=== PATIENT | male | born 1960 | race Caucasian/White ===

== ENCOUNTER 2019-06-26 17:37 | Emergency (ER) | payer MEDICAID, SELFPAY ==
[2019-06-26 17:50] VITALS: BP 135/82; PULSE 92; RESP 20; TEMP 36.4; O2SAT 97; BMI 30.7
--- NOTE | 2019-06-26 17:59 | ED_ITS ---
Entered by Keira Butler, acting as scribe for Genesis Hicks MD HPI - General Adult General: Chief complaint: General Medical Stated complaint: cant sleep Time Seen by Provider: 06/26/19 17:59 Source: patient Mode of arrival: ambulatory Limitations: no limitations History of Present Illness: HPI narrative: 58 yo Male presents to ED with complaint of insomnia. Pt states that he needs a refill of his Seroquel. Pt states that he takes 400mg at night. Pt normally see Alpa Lizzie. Pt states that he ran out on . Pt states that he has been trying to get his doctor's office to send a refill to the pharmacy but hasn't been able to get anywhere with it. complaint: Insomnia Onset (ago): day(s) (4) Relieving factors: medication Exacerbating factors: none Associated symptoms: Reports other (Insomnia); Deny chest pain, dyspnea, headache(s), nausea, rash or vomiting Treatments prior to arrival: none Review of Systems Const: Denies: fever or chills Eyes: Denies: change in vision ENMT: Denies: throat pain or mouth pain Card: Denies: chest pain Resp: Denies: shortness of breath GI: Denies: abdominal pain, nausea, vomiting or diarrhea Musc: Denies: back pain or joint pain Skin/Breast: Denies: rash Neuro: Denies: headache or behavioral changes Psych: Denies: depression Endo: Denies: excessive urination Cordell/Lymph: Denies: easy bruising All/Imm: Denies: hives PFSH ED PFSH: Statuses (acute, chronic, etc) shown below reflect problem list status as previously entered and may not be historically accurate Social History Smoking and tobacco status: never smoked Physical Exam Const: COMMON NORMALS: no apparent distress and healthy appearing HENMT: COMMON NORMALS: normocephalic and external nose normal HEAD & SCALP: normocephalic NOSE: external nose normal and no nasal discharge (nasal dischage) Eye: COMMON NORMALS: PERRL PUPIL: Yes PERRL Neck/C-Spine: COMMON NORMALS: full ROM and no lymphadenopathy Chest: COMMONS NORMALS: inspection of chest normal Resp: COMMON NORMALS: normal respiratory effort and clear to auscultation bilaterally AUSCULTATION: clear to auscultation bilaterally Cardio: COMMON NORMALS: regular rate and regular rhythm RATE: regular rate RHYTHM: regular rhythm GI: COMMON NORMALS: soft to palpation PALPATION: Yes soft Extremity: COMMON NORMALS: normal to inspection, full ROM and normal capillary refill Psych: COMMON NORMALS: mental status grossly normal and cooperative Skin: COMMON NORMALS: no rashes or lesions noted GENERAL SKIN EXAM: no rashes or lesions noted Course Vital Signs: Vital signs: Vital Signs Temperature 97.5 F L 06/26/19 17:50 Pulse Rate 92 06/26/19 17:50 Respiratory Rate 20 H 06/26/19 17:50 Blood Pressure 135/82 06/26/19 17:50 Pulse Oximetry 97 06/26/19 17:50 MDM - General Adult MDM Narrative: Medical decision making narrative: Patient presents here with difficulty sleeping. Will place patient on Seroquel and refill his Seroquel prescription. Patient is stable for discharge and is to follow-up with primary care doctor in 3 to 5 days and return if worsening. Discharge Plan Discharge Patient Disposition: Home, Self-Care Clinical Impression: Insomnia Qualifiers: Insomnia type: other insomnia Qualified Code(s): G47.09 - Other insomnia Condition: Stable Prescriptions: New Seroquel 400 mg tablet 400 mg PO DAILY Qty: 30 RF: 0 Discharge Orders: Discharge Order (Routine); Ordered 06/26/19 Ordered By: Genesis Hicks Referrals: Alpa Samuel FNP [Family Provider] - Discharge Diet: Advance as tolerated Discharge Activity: Resume usual activity Patient Instructions: Insomnia (ED) Coding Level of Care Code ED Transitional Care Liaison for Chg Fwd Exam Problem Focused The documentation recorded by the Luke dhillon Carmen, accurately reflects the service I personally performed and the decisions made by , Genesis Hicks MD
[2019-06-26 18:17] VITALS: BP 145/72; PULSE 78; RESP 18; O2SAT 98
== END 2019-06-26 18:18 | disposition home or self-care (01) ==
LOC: ER 18:18
PROVIDERS: Emergency Provider Emergency Medicine; Family Provider Nurse Practitioner
DX: G47.09 Other insomnia (principal)
CPT/HCPCS: 99281

== ENCOUNTER 2019-11-09 08:11 | Emergency (ER) | payer MEDICAID, SELFPAY ==
[2019-11-09 08:14] VITALS: BP 115/80; PULSE 88; RESP 16; TEMP 36.6; O2SAT 92; BMI 34.8
--- NOTE | 2019-11-09 08:15 | W.ED.GENADLT ---
HPI - General Adult General: Chief complaint: Recheck/Abnormal Lab/Rx Stated complaint: OUT OF MEDS Time Seen by Provider: 11/09/19 08:15 Source: patient Mode of arrival: ambulatory Limitations: no limitations History of Present Illness: HPI narrative: Patient is a client of Alpa Samuel, nurse practitioner. Ms. Samuel has been out of the office due to illness. Patient has been unable to get a refill on his Seroquel that he uses at bedtime. Patient reports being without his medication for 3 days, denies suicidal or homicidal thoughts. Patient appears well. Review of Systems General: Reports: 10 or more systems reviewed and unremarkable except in HPI and below Psych: Reports: anxiety and other (Difficulty sleeping) [facility] PFSH: Medical History (Updated 11/09/19 @ 08:30 by SHIRA Enriquez) Asthma Depression Hypertension PTSD (post-traumatic stress disorder) Social History Smoking and tobacco status: never smoked Alcohol intake: former History of recent travel: No Physical Exam Const: COMMON NORMALS: no acute distress and patient oriented x3 GENERAL APPEARANCE: cooperative HENMT: COMMON NORMALS: normocephalic and Normal external nose present HEAD & SCALP: normal to inspection and normocephalic NOSE: Normal external nose present MOUTH: Normal oral and palatal mucosa present THROAT: posterior oropharynx normal Eye: GENERAL EYE: appearance normal, both eyes and all related structures Neck/C-Spine: COMMON NORMALS: full ROM Chest: COMMONS NORMALS: normal inspection of the chest Resp: COMMON NORMALS: normal respiratory effort EFFORT & INSPECTION: Yes able to speak in complete sentences Cardio: COMMON NORMALS: regular rate and regular rhythm RATE: regular rate RHYTHM: regular rhythm GI: COMMON NORMALS: non-tender Back/Pelvis: COMMON NORMALS: thoracic and lumbar spine normal to inspection Extremity: COMMON NORMALS: normal to inspection Neuro: COMMON NORMALS: patient oriented x3 and moves all extremities Psych: COMMON NORMALS: mental status grossly normal (Flat affect) and cooperative Skin: COMMON NORMALS: no rashes or lesions noted GENERAL SKIN EXAM: no rashes or lesions noted Course Vital Signs: Vital signs: Vital Signs Temperature 97.9 F 11/09/19 08:14 Pulse Rate 88 11/09/19 08:14 Respiratory Rate 16 11/09/19 08:14 Blood Pressure 115/80 11/09/19 08:14 Pulse Oximetry 92 11/09/19 08:14 MDM - General Adult MDM Narrative: Medical decision making narrative: Patient comes in for refill on Seroquel. Exam patient appears well. Respirations are even lungs are clear to auscultation. Reviewed exam with patient with recommendations for refill of medications and follow-up with primary care. Patient reports understanding agreed to plan. Discharge Plan Discharge Patient Disposition: Home, Self-Care Clinical Impression: PTSD (post-traumatic stress disorder), Encounter for medication refill Condition: Stable Prescriptions: Continued albuterol sulfate [ProAir HFA] 90 mcg/actuation HFA aerosol inhaler 2 puff INHALATION Q6H PRN (Reason: shortness of breath or wheezing) 30 Days Qty: 18 RF: 2 duloxetine 60 mg capsule,delayed release(DR/EC) 60 mg PO DAILY Qty: 30 RF: 2 losartan 100 mg tablet 100 mg PO DAILY Qty: 30 RF: 2 Seroquel 400 mg tablet 400 mg PO DAILY Qty: 30 RF: 2 Discharge Orders: Discharge Order (Routine); Ordered 11/09/19 Ordered By: Juan Pablo Mahoney Referrals: Alpa Samuel FNP [Primary Care Provider] - Discharge Diet: Usual diet Discharge Activity: Increase activity as tolerated Activity Restrictions/Additional Instructions: Continue routine medications. Follow-up with primary care as appointment becomes available. Return to the ER for new concerns. Coding Level of Care Code ED Hoop Punch And Coiler Operator for Keyon Fwd Exam Comprehensive
== END 2019-11-09 08:45 | disposition home or self-care (01) ==
PROVIDERS: Emergency Provider Nurse Practitioner Family; Family Provider Nurse Practitioner; PCP Nurse Practitioner
DX: Z76.0 Encounter for issue of repeat prescription (principal); F43.10 Post-traumatic stress disorder, unspecified; I10 Essential (primary) hypertension; J45.909 Unspecified asthma, uncomplicated
CPT/HCPCS: 12345; 99281

== ENCOUNTER 2020-01-09 07:29 | Emergency (ER) | payer MEDICAID, SELFPAY ==
[2020-01-09 07:36] VITALS: BMI 32.8
[2020-01-09 07:39] VITALS: BP 154/129; PULSE 96; RESP 18; TEMP 37.2; O2SAT 96
--- NOTE | 2020-01-09 07:42 | W.ED.GENADLT ---
HPI - General Adult General: Chief complaint: General Medical Stated complaint: BP ISSUE/OUT OF ASTHMA MEDS Time Seen by Provider: 01/09/20 07:35 Source: patient Mode of arrival: ambulatory Limitations: no limitations History of Present Illness: HPI narrative: out of medications for 2 weeks Review of Systems General: Reports: 10 or more systems reviewed and unremarkable except in HPI and below PFSH ED PFSH: Medical History Asthma Depression Hypertension PTSD (post-traumatic stress disorder) Social History Smoking and tobacco status: never smoked Alcohol intake: former History of recent travel: No Physical Exam Const: COMMON NORMALS: no acute distress, patient oriented x3, no limitations and alert GENERAL APPEARANCE: cooperative and comfortable ORIENTATION/CONSCIOUSNESS: Yes awake, Yes oriented to person, Yes oriented to place and Yes oriented to time HENMT: COMMON NORMALS: normocephalic, atraumatic, external ears normal, EAC's normal, TM's normal bilaterally and Normal external nose present HEAD & SCALP: normal to inspection, normocephalic and atraumatic FACE & SINUS: normal facial exam, sinuses nontender and face symmetric NOSE: Normal external nose present, Normal nares present and No nasal discharge present EXTERNAL EAR: Yes external ears normal EXTERNAL AUDITORY CANAL: EAC's normal TYMPANIC MEMBRANE: TM's normal bilaterally MOUTH: Normal oral and palatal mucosa present, lip normal and tongue normal THROAT: posterior oropharynx normal, tonsils normal and uvula midline Eye: COMMON NORMALS: Equal, round and reactive pupils present, EOMs intact bilaterally and conjunctivae normal GENERAL EYE: appearance normal, both eyes and all related structures and normal light reflex EYELID: eyelids normal CONJUNCTIVA: Yes conjunctivae normal PUPIL: Yes Equal, round and reactive pupils present EOM: Yes EOM abnormal DIRECT OPHTHALMOSCOPY: Yes normal light reflex Neck/C-Spine: COMMON NORMALS: full ROM, no lymphadenopathy, supple, no meningeal signs, no JVD and Thyroid normal GENERAL: Yes normal visual inspection THYROID: Thyroid normal CERVICAL SPINE: Yes cervical ROM normal and Yes normal cervical lordosis Lymph: LYMPHATIC: no lymphadenopathy noted Chest: COMMONS NORMALS: normal inspection of the chest and normal palpation of entire chest wall Resp: COMMON NORMALS: normal respiratory effort, No retractions and clear to auscultation bilaterally AUSCULTATION: clear to auscultation bilaterally Cardio: COMMON NORMALS: no JVD, regular rate, regular rhythm, S1 normal heart sound present, S2 normal heart sound present, No gallops present (Cardio), No clicks present (Cardio), No murmurs present (Cardio), No rub (Cardio) and Peripheral pulses 2+ throughout RATE: regular rate RHYTHM: regular rhythm HEART SOUNDS: S1 normal heart sound present and S2 normal heart sound present PERIPHERAL PULSES: Peripheral pulses 2+ throughout GI: COMMON NORMALS: Normal to inspection, nondistended, normoactive bowel sounds present, Soft to palpation, non-tender and no masses PALPATION: Yes Soft to palpation : COMMON NORMALS: Yes no CVA tenderness BLADDER/KIDNEY EXAM: Yes no CVA tenderness Back/Pelvis: COMMON NORMALS: no CVA tenderness, thoracic and lumbar spine normal to inspection, no thoracic nor lumbar tenderness and thoraco-lumbar ROM normal Extremity: COMMON NORMALS: normal to inspection, full ROM, capillary refill normal, no joint enlargement, no clubbing, cyanosis or edema, no calf tenderness and no pedal edema GENERAL: Yes normal exam except as noted Neuro: COMMON NORMALS: patient oriented x3, moves all extremities, no focal motor deficits, no sensory deficits noted and gait normal SENSORIUM/ORIENTATION: Yes alert, Yes oriented to person, Yes oriented to place and Yes oriented to time MENINGEAL SIGNS: Yes no meningeal signs Psych: COMMON NORMALS: mental status grossly normal, Normal thought process present, cooperative, normal affect, speech normal and activity/motor behavior normal SPEECH: Yes normal speech THOUGHT PROCESS: Normal thought process present Skin: COMMON NORMALS: no rashes or lesions noted, no wounds and turgor normal GENERAL SKIN EXAM: no rashes or lesions noted and turgor normal Course ED course: Pt out of medications x 2 weeks Reevaluation(s): Reevaluation #1: Pt ran out of his medications 2 weeks ago when his PCP retired. He hasn't been able to be seen as of yet. Will do a 30 day refill. Time: 08:10 Vital Signs: Vital signs: Vital Signs Temperature 98.9 F 01/09/20 07:39 Pulse Rate 96 01/09/20 07:39 Respiratory Rate 18 01/09/20 07:39 Blood Pressure 154/129 01/09/20 07:39 Pulse Oximetry 96 01/09/20 07:39 Discharge Plan Discharge Prescriptions: No Action albuterol sulfate [ProAir HFA] 90 mcg/actuation HFA aerosol inhaler 2 puff INHALATION Q6H PRN (Reason: shortness of breath or wheezing) 30 Days Qty: 18 RF: 2 duloxetine 60 mg capsule,delayed release(DR/EC) 60 mg PO DAILY 30 Days Qty: 30 RF: 1 losartan 100 mg tablet 100 mg PO DAILY 30 Days Qty: 30 RF: 1 Advair HFA 230-21 mcg/actuation Hfa Aerosol Inhaler 2 puff INHALATION Q12H RF: 0 Seroquel 400 mg tablet 400 mg PO DAILY Qty: 30 RF: 2 Coding Level of Care Code ED Injection Mold Tooling Technician for Keyon Johnson
[2020-01-09 07:54] VITALS: BP 170/116; RESP 16; O2SAT 98
[2020-01-09 08:19] VITALS: BP 170/110; PULSE 87; RESP 18; O2SAT 98
== END 2020-01-09 08:21 | disposition home or self-care (01) ==
PROVIDERS: Emergency Provider Nurse Practitioner Family
DX: Z76.0 Encounter for issue of repeat prescription (principal); I10 Essential (primary) hypertension
CPT/HCPCS: 12345; 99281

== ENCOUNTER → 2020-02-20 08:22 | Outpatient (BNVA) | payer MEDICAID, SELFPAY | PROVIDERS: Visit Provider Nurse Practitioner Psychiatric/Mental Health | DX: F33.1 Major depressive disorder, recurrent, moderate (principal); F43.10 Post-traumatic stress disorder, unspecified; Z79.899 Other long term (current) drug therapy | CPT/HCPCS: 99213 ==

== ENCOUNTER → 2020-04-09 07:45 | Outpatient (BNVA) | payer MEDICAID, SELFPAY | PROVIDERS: Visit Provider Nurse Practitioner Psychiatric/Mental Health | DX: F33.1 Major depressive disorder, recurrent, moderate (principal); F43.10 Post-traumatic stress disorder, unspecified; F43.12 Post-traumatic stress disorder, chronic | CPT/HCPCS: 99212 ==

== ENCOUNTER 2020-05-27 13:00 | Emergency (ER) | payer MEDICAID, SELFPAY ==
[2020-05-27 13:12] VITALS: BP 161/92; PULSE 79; RESP 14; TEMP 36.6; O2SAT 98; BMI 32.1
--- NOTE | 2020-05-27 13:36 | ED_ITS ---
HPI - General Adult General: Chief complaint: General Medical Stated complaint: NEEDS SCRIPTS REFILLED/PCP OUT OF TOWN Time Seen by Provider: 05/27/20 13:31 Source: patient Mode of arrival: ambulatory Limitations: no limitations History of Present Illness: HPI narrative: Mr. Plasencia is a nice 59-year-old male who comes in complaining of needing a medication refill. Patient states he takes Seroquel 600 mg total every night for sleep. He states he is done this for years. States that he cannot sleep without this. He has an appointment to be seen by his behavioral health specialist but as they cannot fit him in because of the holidays and they told him to go to the ER if he needed a refill. Patient denies any other complaints or need for any other medicines. Associated symptoms: Deny chest pain, dyspnea, headache(s), nausea, rash, palpitations, syncope or vomiting Review of Systems Const: Denies: fever(s) Eyes: Denies: change in vision or blurry vision ENMT: Denies: throat pain, hoarseness or swelling of lips/tongue Card: Denies: chest pain, palpitations, syncope, pre-syncope or dyspnea on exertion Resp: Denies: dyspnea, productive cough, non-productive cough, wheezing, change in phlegm color or hemoptysis GI: Denies: abdominal pain, nausea, vomiting or diarrhea : Denies: flank pain, dysuria, urinary frequency or urinary urgency Musc: Denies: neck pain, back pain or extremity pain Skin/Breast: Denies: rash or pruritus Neuro: Denies: headache(s), numbness in extremities, weakness in extremities or dizziness Cordell/Lymph: Denies: easy bruising, easy bleeding, petechiae or purpura All/Imm: Denies: urticaria or throat swelling PFSH ED PFSH: Medical History Asthma COPD (chronic obstructive pulmonary disease) case management patient Depression Hypertension Major depressive disorder, recurrent, moderate PTSD (post-traumatic stress disorder) Social History Smoking and tobacco status: never smoked Alcohol intake: former History of recent travel: No Physical Exam Const: COMMON NORMALS: no acute distress, patient oriented x3, no limitations and alert GENERAL APPEARANCE: cooperative HENMT: COMMON NORMALS: normocephalic, atraumatic, external ears normal, EAC's normal and Normal external nose present HEAD & SCALP: normal to inspection, normocephalic and atraumatic FACE & SINUS: normal facial exam and face symmetric NOSE: Normal external nose present and Normal nares present EXTERNAL EAR: Yes external ears normal EXTERNAL AUDITORY CANAL: EAC's normal MOUTH: Normal oral and palatal mucosa present, lip normal and tongue normal Eye: COMMON NORMALS: Equal, round and reactive pupils present and conjunctivae normal GENERAL EYE: appearance normal, both eyes and all related structures ALIGNMENT: Yes alignment normal PERIORBITAL: periorbital findings normal EYELID: eyelids normal CONJUNCTIVA: Yes conjunctivae normal SCLERA: sclerae normal PUPIL: Yes Equal, round and reactive pupils present Neck/C-Spine: COMMON NORMALS: full ROM, no lymphadenopathy, supple, no meningeal signs and no JVD GENERAL: Yes normal visual inspection and Yes trachea midline Chest: COMMONS NORMALS: normal inspection of the chest and normal palpation of entire chest wall Resp: COMMON NORMALS: normal respiratory effort, No retractions, No use of accessory muscles and clear to auscultation bilaterally EFFORT & INSPECTION: Yes able to speak in complete sentences and Yes symmetric chest movement AUSCULTATION: clear to auscultation bilaterally, no crackles, no rales, no rhonchi and no wheezes Cardio: COMMON NORMALS: no JVD, regular rate, regular rhythm, S1 normal heart sound present and S2 normal heart sound present RATE: regular rate RHYTHM: regular rhythm HEART SOUNDS: S1 normal heart sound present, S2 normal heart sound present, no click, no gallops, no murmurs and no rubs GI: COMMON NORMALS: Soft to palpation and No hepatosplenomegaly present PALPATION: Yes Soft to palpation, No Tenderness to palpation present (GI), No Guarding due to palpation present (GI), No Rigid due to palpation, Yes No hepatosplenomegaly present, No Hernia present, No Palpable mass present and No Pulsatile mass present : COMMON NORMALS: Yes no CVA tenderness BLADDER/KIDNEY EXAM: Yes no CVA tenderness Back/Pelvis: COMMON NORMALS: no CVA tenderness, thoracic and lumbar spine normal to inspection, no thoracic nor lumbar tenderness and thoraco-lumbar ROM normal Extremity: COMMON NORMALS: normal to inspection, full ROM, capillary refill normal, no joint enlargement, no clubbing, cyanosis or edema and no calf tenderness Neuro: COMMON NORMALS: patient oriented x3, CN's II-XII intact bilaterally, moves all extremities, no focal motor deficits and no sensory deficits noted SENSORIUM/ORIENTATION: Yes alert MENINGEAL SIGNS: Yes no meningeal signs SPEECH: speech normal Psych: COMMON NORMALS: mental status grossly normal, Normal thought process present, cooperative, normal affect, speech normal and activity/motor behavior normal SPEECH: Yes normal speech THOUGHT PROCESS: Normal thought process present Skin: COMMON NORMALS: no rashes or lesions noted, turgor normal, no jaundice, no petechiae and no mottling GENERAL SKIN EXAM: no rashes or lesions noted and turgor normal Course Vital Signs: Vital signs: Vital Signs Temperature 97.9 F 05/27/20 13:12 Pulse Rate 79 05/27/20 13:12 Respiratory Rate 14 05/27/20 13:12 Blood Pressure 161/92 05/27/20 13:12 Pulse Oximetry 98 05/27/20 13:12 MDM - General Adult MDM Narrative: Medical decision making narrative: I see evidence the patient's been taking this for years. This not a controlled substance with a high addictive potential. I will give the patient enough just to get him through to his next appointment which she appreciates. Further care can be dictated by his primary care providers at that time. Discharge Plan Discharge Patient Disposition: Home Clinical Impression: Medication refill Condition: Stable Prescriptions: No Action albuterol sulfate [ProAir HFA] 90 mcg/actuation HFA aerosol inhaler 2 puff INHALATION Q6H PRN (Reason: shortness of breath or wheezing) 30 Days Qty: 18 RF: 4 losartan 100 mg tablet 100 mg PO DAILY 30 Days Qty: 30 RF: 4 fluticasone propion-salmeterol [Advair Diskus] 250-50 mcg/dose blister with device 1 inh INHALATION BID Qty: 2 RF: 3 Seroquel 400 mg tablet 400 mg PO .qhs Qty: 30 RF: 1 quetiapine 200 mg tablet 200 mg PO .q hs Qty: 30 RF: 1 escitalopram oxalate 20 mg tablet 20 mg PO .q am Qty: 30 RF: 1 Discharge Orders: Discharge ED (Routine); Ordered 05/27/20 Ordered By: Evi Veronica Referrals: Grayson Canchola MD [Primary Care Provider] - 1-3 days Discharge Diet: Advance as tolerated Discharge Activity: Increase activity as tolerated Activity Restrictions/Additional Instructions: My be certain to follow-up with the [facility] for evaluation of your medicines as scheduled on the . You are given handwritten prescriptions for the Seroquel that she will need until then. All future medication refills will need to come from your primary care provider or your behavioral health specialist. Coding Level of Care Code ED Electrical Installation Inspector for Chg Fwd Exam Comprehensive
== END 2020-05-27 13:44 | disposition home or self-care (01) ==
PROVIDERS: Emergency Provider Emergency Medicine; PCP Family Medicine Adult Medicine
DX: Z76.0 Encounter for issue of repeat prescription (principal); J44.9 Chronic obstructive pulmonary disease, unspecified; I10 Essential (primary) hypertension
CPT/HCPCS: 12345; 99281; 99282

== ENCOUNTER → 2020-06-04 07:57 | Outpatient (BNVA) | payer MEDICAID, SELFPAY | PROVIDERS: PCP Family Medicine Adult Medicine; Visit Provider Nurse Practitioner Psychiatric/Mental Health | DX: F43.10 Post-traumatic stress disorder, unspecified (principal); F33.1 Major depressive disorder, recurrent, moderate; F41.9 Anxiety disorder, unspecified | CPT/HCPCS: 99212 ==

== ENCOUNTER → 2020-06-12 09:26 | Outpatient (BNVA) | payer MEDICAID, SELFPAY | PROVIDERS: PCP Family Medicine Adult Medicine; Visit Provider Family Medicine Adult Medicine | DX: Z79.899 Other long term (current) drug therapy (principal) | CPT/HCPCS: 80053; 80061; 83036 ==

== ENCOUNTER → 2020-06-24 09:49 | Outpatient (BNVA) | payer MEDICAID, SELFPAY | PROVIDERS: PCP Family Medicine Adult Medicine; Visit Provider Nurse Practitioner Psychiatric/Mental Health | DX: F43.10 Post-traumatic stress disorder, unspecified (principal); F33.1 Major depressive disorder, recurrent, moderate; F41.9 Anxiety disorder, unspecified | CPT/HCPCS: 99212 ==

== ENCOUNTER → 2020-07-25 07:31 | Outpatient (BNVA) | payer MEDICAID, SELFPAY | PROVIDERS: PCP Family Medicine Adult Medicine; Visit Provider Nurse Practitioner Psychiatric/Mental Health | DX: F43.10 Post-traumatic stress disorder, unspecified (principal); F33.1 Major depressive disorder, recurrent, moderate; F41.9 Anxiety disorder, unspecified; Z03.89 Encounter for observation for other suspected diseases and conditions ruled out | CPT/HCPCS: 99214 ==

== ENCOUNTER 2020-08-22 23:23 | Emergency (ER) | payer MEDICAID, SELFPAY ==
[2020-08-22 23:24] VITALS: BP 167/105; PULSE 78; RESP 18; TEMP 36.4; O2SAT 96; BMI 35.6
--- NOTE | 2020-08-22 23:26 | XR_ITS ---
WS: [id number] XR ankle RT min 3V* [id number] REASON FOR EXAM: fall FINDINGS: Oblique comminuted fracture of the distal fibula just proximal to the tibiofibular syndesmosis. No si gnificant displacement or angulation the fracture fragments. Horizontal fracture through the medial malleolus extending into the ankle mortise. There is widening of the ankle mortise medially. No soft tissue abnormality XR/XR ankle RT min 3V* [id number] IMPRESSION: Right ankle fracture as above.
--- NOTE | 2020-08-22 23:28 | ED_ITS ---
HPI - Fall General: Chief Complaint: Extremity Injury, Lower Stated Complaint: Fall, Right Ankle Injury Time Seen by Provider: 08/22/20 23:23 Source: patient and EMS Mode of arrival: EMS Limitations: no limitations History of Present Illness: HPI Narrative: 59-year-old male who states he slipped on a wet spot on his deck and fell just prior to arrival. Patient fell on his right ankle and has right ankle pain. He has obvious deformity to that ankle. States his pain is currently a 5 out of 10 received 7 mg of morphine in route. He denies hitting his head denies any pain elsewhere. He denies any hip or knee pain. States pain is much worse with any palpation improved with rest. MD complaint: fall Associated symptoms-after fall: Denies abdominal pain, chest pain or headache(s) Review of Systems Const: Denies: fever(s), chills, body aches or change in appetite Eyes: Denies: blurry vision or eye discomfort ENMT: Denies: throat pain or dental pain Card: Denies: chest pain Resp: Denies: dyspnea GI: Denies: abdominal pain, nausea, vomiting or diarrhea : Denies: dysuria Musc: Reports: extremity pain Skin/Breast: Denies: rash Neuro: Denies: headache(s) Psych: Denies: depression [place]/Lymph: Denies: easy bruising All/Imm: Denies: urticaria PFSH ED PFSH: Medical History (Updated 08/22/20 @ 23:44 by Genesis Hicks MD) Asthma COPD (chronic obstructive pulmonary disease) case management patient Depression Hypertension Major depressive disorder, recurrent, moderate PTSD (post-traumatic stress disorder) Recurrent moderate major depressive disorder with anxiety Social History Smoking and tobacco status: never smoked Alcohol intake: former History of recent travel: No Physical Exam Const: COMMON NORMALS: no acute distress, patient oriented x3 and healthy appearing HENMT: COMMON NORMALS: normocephalic and atraumatic HEAD & SCALP: normocephalic and atraumatic Eye: COMMON NORMALS: Equal, round and reactive pupils present and EOMs intact bilaterally PUPIL: Yes Equal, round and reactive pupils present Neck/C-Spine: COMMON NORMALS: full ROM and supple Chest: COMMONS NORMALS: normal inspection of the chest and normal palpation of entire chest wall Resp: COMMON NORMALS: normal respiratory effort, No retractions, No use of accessory muscles and clear to auscultation bilaterally AUSCULTATION: clear to auscultation bilaterally Cardio: COMMON NORMALS: regular rate, regular rhythm and No murmurs present (Cardio) RATE: regular rate RHYTHM: regular rhythm GI: COMMON NORMALS: Normal to inspection, nondistended, normoactive bowel sounds present, Soft to palpation, non-tender and no masses PALPATION: Yes Soft to palpation Extremity: NARRATIVE EXTREMITY EXAM: Obvious deformity to right ankle distal pulses and sensation intact. No signs of open fracture Neuro: COMMON NORMALS: patient oriented x3, moves all extremities and no focal motor deficits Psych: COMMON NORMALS: mental status grossly normal, Normal thought process present and cooperative THOUGHT PROCESS: Normal thought process present Skin: COMMON NORMALS: no rashes or lesions noted and no wounds GENERAL SKIN EXAM: no rashes or lesions noted Procedures Orthopedic Splinting/Casting Injury #1: Side: right Lower Extremity Injury Location: ankle Lower Extremity Immobilizer: stirrup splint Other Orthopedic Equipment: crutches Course Vital Signs: Vital signs: Vital Signs Temperature 97.6 F 08/22/20 23:24 Pulse Rate 78 08/22/20 23:24 Respiratory Rate 18 08/22/20 23:24 Blood Pressure 167/105 08/22/20 23:24 Pulse Oximetry 96 08/22/20 23:24 MDM - Fall MDM Narrative: Medical decision making narrative: Patient presents with an ankle fracture from a fall. Patient was placed in a splint is to follow-up with orthopedics. Will prescribe pain meds. He has no other signs of any injuries. He has good distal pulses and sensation intact after splint placement. He is to return if worsening. Imaging Data^: X-ray right ankle: Attestation: I personally reviewed and interpreted this imaging study as follows: My impression: Bimalleolar fracture Discharge Plan Discharge Patient Disposition: Home Clinical Impression: Ankle fracture Qualifiers: Encounter type: initial encounter Fracture type: closed Laterality: right Qualified Code(s): S82.891A - Other fracture of right lower leg, initial encounter for closed fracture Condition: Stable Prescriptions: [place] 5-325 mg tablet 1 tab PO Q6H PRN (Reason: pain) Qty: 14 RF: 0 No Action losartan 100 mg tablet 100 mg PO DAILY 30 Days Qty: 30 RF: 2 atorvastatin 20 mg tablet 20 mg PO .po q hs Qty: 30 RF: 1 meloxicam [Mobic] 7.5 mg tablet 7.5 mg PO DAILY Qty: 30 RF: 1 amoxicillin-pot clavulanate [Augmentin] 875-125 mg tablet 1 tab PO BID Qty: 20 RF: 0 Mucinex 1,200 mg tablet extended release 12hr 1,200 mg PO Q12H Qty: 20 RF: 0 albuterol sulfate [ProAir HFA] 90 mcg/actuation HFA aerosol inhaler 2 puff INHALATION Q6H PRN (Reason: shortness of breath or wheezing) 30 Days Qty: 18 RF: 4 fluticasone propion-salmeterol [Advair Diskus] 250-50 mcg/dose blister with device 1 inh INHALATION BID Qty: 2 RF: 3 fluoxetine 60 mg tablet 60 mg PO QAM Qty: 30 RF: 1 Seroquel 400 mg tablet 400 mg PO .qhs Qty: 30 RF: 1 quetiapine 200 mg tablet 200 mg PO .q hs Qty: 30 RF: 1 alprazolam 1 mg tablet 1 mg PO DAILY PRN (Reason: anxiety) Qty: 30 RF: 1 Discharge Orders: Discharge ED (Routine); Ordered 08/22/20 Ordered By: Genesis Hicks Referrals: Grayson Canchola MD [Primary Care Provider] - Sylvia Cole MD [Physician] - 1-3 days Discharge Diet: Advance as tolerated Discharge Activity: Resume usual activity Patient Instructions: Ankle Fracture (ED), Opioid Safety Coding Level of Care Code ED Sorter Packer for Chg Fwd Exam Comprehensive
[2020-08-22] MEDS: LORazepam 2 mg/mL INJ 1 mL 1 MG IVP (23:56)
[2020-08-23 00:51] VITALS: BP 133/93; PULSE 88; RESP 16; O2SAT 95
--- NOTE | 2020-08-23 10:03 | DCPLANNER ---
front end manager had message to schedule a follow up appointment for patient with ortho. front end manager called the ortho clinic, spoke with Anupama, gave clinic patients information. front end manager was told that patients information would be printed and reviewed. Clinic will call patient with appointment information.
--- NOTE | 2020-08-27 07:19 | DCPLANNER ---
Patient had a follow up appointment scheduled with Dr. Cole with ortho on 08.26.20 - patient did attend appointment.
== END 2020-08-23 00:50 | disposition home or self-care (01) ==
PROVIDERS: Emergency Provider Emergency Medicine; PCP Family Medicine Adult Medicine
DX: S82.841A Displaced bimalleolar fracture of right lower leg, initial encounter for closed fracture (principal); W01.0XXA Fall on same level from slipping, tripping and stumbling without subsequent striking against object, initial encounter; J44.9 Chronic obstructive pulmonary disease, unspecified; I10 Essential (primary) hypertension
CPT/HCPCS: 29515; 73610; 96374; 99283; E0114; J2060

== ENCOUNTER → 2020-08-26 11:28 | Outpatient (BNVA) | payer MEDICAID, SELFPAY | PROVIDERS: PCP Family Medicine Adult Medicine; Referring Provider Family Medicine; Visit Provider Specialist | DX: S82.891A Other fracture of right lower leg, initial encounter for closed fracture (principal); J20.9 Acute bronchitis, unspecified; X58.XXXA Exposure to other specified factors, initial encounter | CPT/HCPCS: 73610 ==

== ENCOUNTER 2020-08-27 08:12 | Day surgery (SDC) | payer MEDICAID, SELFPAY ==
[2020-08-26 15:36] VITALS: BMI 35.2
[2020-08-27] VITALS (16 sets, daily range): BP systolic 108–198; BP diastolic 69–125; PULSE 64–124; RESP 13–22; TEMP 36.1–36.3; O2SAT 93–100
--- NOTE | 2020-08-27 | XR_ITS ---
WS: [id number] C-ARM RADIOGRAPHS RIGHT ANKLE; 3 IMAGES HISTORY: External fixator COMPARISON: 08/26/2020 Intraoperative imaging during external fixator placement. Fixator noted within the mid to distal tibi a and distally over the posterior foot. Distal fibula and medial malleolus fractures and posterior ma lleolus fractures are in near normal alignment. Improved alignment as compared to 08/26/2020. XR/XR ankle RT 2V [id number] IMPRESSION: Intraoperative imaging during external fixator placement.
[2020-08-27] MEDS: CELEcoxib 200 mg Capsule 400 MG PO (09:08)
[2020-08-27] MEDS: acetaminophen 1,000 MG/100 ML PIGGYBACK 400 MG IV (09:09)
[2020-08-27] MEDS: sodium chloride 0.9% 1,000 ML 30 ML IV (09:10)
[2020-08-27 09:13] LABS: Basophils % 0.7 %; Eosinophils # 0.4 10^3/uL (0.0-0.8); Eosinophils % 6.3 %; Hematocrit 34.7 % (42.0-52.0); Lymphocytes # 1.2 10^3/uL (0.8-4.8); Lymphocytes % 21.6 %; Mean Corpuscular HGB Conc 31.7 g/dL (30.0-36.0); Mean Corpuscular Hemoglobin 29.6 pg (28.0-34.0); Mean Corpuscular Volume 93.5 fL (80-94); Mean Platelet Volume 8.9 fL (7.4-10.4); Monocytes # 0.7 10^3/uL (0.2-0.9); Monocytes % 11.5 %; Neutrophils # 3.42 10^3/uL (1.8-7.7); Neutrophils % 59.6 %; Nucleated Red Blood Cells % 0 %; Platelet Count 328 10^3/cmm (130-400); Red Blood Count 3.71 10^6/uL (4.1-5.3); Red Cell Distribution Width 14.2 % (12.1-15.1); White Blood Count 5.7 10^3/uL (4.0-10.0)
[2020-08-27 09:28] LABS: Alanine Aminotransferase 47 U/L (0-41); Albumin Level 3.9 g/dL (3.5-5.2); Alkaline Phosphatase 192 IU/L (40-130); Anion Gap 15.3 (5-19); Aspartate Amino Transferase 32 U/L (0-40); Blood Urea Nitrogen 15 mg/dL (6-20); Calcium 8.9 mg/dL (8.5-10.5); Carbon Dioxide 23 mmol/L (22-29); Chloride 101 mmol/L (98-107); Globulin 3.5 g/dL (1.3-4.6); Glomerular Filtration Rate 68.8 mL/min (90-130); Glucose 120 mg/dL (65-115); Osmolality Calculated 282 mOsm/kg (285-295); Potassium 4.3 mmol/L (3.5-5.1); Sodium 135 mmol/L (136-145); Total Bilirubin 0.6 mg/dL (0.15-1.2); Total Protein 7.4 g/dL (6.6-8.7)
--- NOTE | 2020-08-27 09:29 | ANES.PREANE2 ---
Pre-Anesthetic Assessment Pre-Anesthetic Assessment: Height/Weight: Height 1.85 m Weight 121.109 kg Preop Diagnosis: Trimalleolar right ankle fracture with Syndesmotic disruption Proposed Procedure: Operation Date: 08/27/20 10:00 Proposed Procedures p external fixation right ankle with soft tissue debridement S82.851A(Right) - Sylvia Cole MD s Debridement Lower Extremity(Right) - Sylvia Cole MD Familial anesthetic complications: None Was Beta Jona taken within 24 hours: N/A Was Clonidine taken within 24 hours: N/A Last intake: NPO > 8 hrs Social: Social History: Tobacco and No alcohol Exam: Pre-Anes Outpt Exam: alert, oriented x 3 and regular rate & rhythm Additional Exam Findings (including area of procedure): diffuse wheezes throughout Airway: MP: 3 Dentition: Full Pulmonary: Pulmonary: Asthma and COPD (normally coughs a lot in morning d/t mucus) CV/HEM: CV/HEM: HTN Metabolic: Metabolic: Hyperlipidemia Anesthetic Plan: ASA status: 3 Anesthesia: General Risk of > 500 ml blood loss (7ml/kg in children): No Meds/Allergies Current Medications: Current Medications Generic Name Dose Route Start Last Admin Trade Name Freq PRN Reason Stop Dose Admin Sodium Chloride 1,000 mls @ 30 ml s/hr 08/27/20 09:15 08/27/20 09:10 Sodium Chloride 0.9% IV 08/28/20 09:14 30 mls/hr .Q24H DIXIE Administration PFSH Anesthesia PFSH: Medical History Asthma COPD (chronic obstructive pulmonary disease) case management patient Depression Hypertension Major depressive disorder, recurrent, moderate PTSD (post-traumatic stress disorder) Recurrent moderate major depressive disorder with anxiety Social History Smoking and tobacco status: never smoked Alcohol intake: former History of recent travel: No Data Anesthesia CBC & Chem 7: 08/27/20 08:55 08/27/20 08:55 Other Labs: Laboratory Results - last 48 hr 08/27/20 08/27/20 08:55 08:55 WBC 5.7 RBC 3.71 L Hgb 11.0 L Hct 34.7 L MCV 93.5 MCH 29.6 MCHC 31.7 RDW 14.2 Plt Count 328 MPV 8.9 Neut % (Auto) 59.6 Lymph % (Auto) 21.6 [place] % (Auto) 11.5 Eos % (Auto) 6.3 Baso % (Auto) 0.7 Neut # (Auto) 3.42 Lymph # (Auto) 1.2 [place] # (Auto) 0.7 Eos # (Auto) 0.4 Baso # (Auto) 0.0 Nucleated RBC % (auto) 0 Nucleated RBCs # 0.0 Potassium 4.3 Chloride 101 Carbon Dioxide 23 Anion Gap 15.3 BUN 15 Creatinine 1.1 Calcium 8.9 Total Bilirubin 0.6 AST 32 Total Protein 7.4 Albumin 3.9 Globulin 3.5 Cardiac Studies: No Data to Display
[2020-08-27] MEDS: vancomycin 1,000 MG in sodium chloride 0.9% 250 ML 250 MG IV (10:09)
--- NOTE | 2020-08-27 10:45 | P.HPUD_ITS ---
Surgery/Procedure H&P Update DATE OF PROCEDURE: August 27, 2020 DATE H&P PERFORMED: 08/26/20 H&P UPDATE INFORMATION: I have reviewed H&P completed within last 30 days, I have examined patient prior to procedure, No changes to prior documentation and H&P is in [facility] EMR on date indicated PREOP DIAGNOSIS: Trimalleolar right ankle fracture with Syndesmotic disruption PLANNED PROCEDURE: Operation Date: 08/27/20 10:00 Proposed Procedures p external fixation right ankle with soft tissue debridement S82.851A(Right) - Sylvia Cole MD s Debridement Lower Extremity(Right) - Sylvia Cole MD Related Problem List Diagnoses (1) Trimalleolar fracture of right ankle: Qualifiers: Encounter type: initial encounter Fracture type: closed Qualified Code(s): S82.851A - Displaced trimalleolar fracture of right lower leg, initial encounter for closed fracture
--- NOTE | 2020-08-27 11:48 | SCC_ITS ---
Procedure Done: Delta frame external fixator right ankle with fracture reduction and debridement of skin and fracture blisters 84.6 seconds of fluoroscopic guidance, for a cumulative dose of 2.55 mGy, was provided to by the radiology department. C-arm images of the right anklw were saved for the patient's permanent record. [facility]
[2020-08-27] MEDS: silvasorb gel 44.4 mL 44 APPLIC (11:59)
--- NOTE | 2020-08-27 12:42 | P.PCN_ITS ---
PACU note PACU note: VSS, Good respiratory effort, report to ROLLED SEAT TRIMMER Post-Anesthesia Exam: awake
--- NOTE | 2020-08-27 12:42 | PM.PACU ---
PACU note PACU note: VSS, Good respiratory effort, report to PRODUCT SUPPORT REP Post-Anesthesia Exam: awake
--- NOTE | 2020-08-27 12:44 | P.OP_ITS ---
Operative Report Date of procedure: August 27, 2020 Pre-op Diagnosis: Trimalleolar right ankle fracture with Syndesmotic disruption Pre-op Diagnosis: With Crisumferential Fracture blisters Post-op diagnosis: same Post-op Findings: There is circumferentially from the calcaneus to significantly above the ankle joint. Unstable trimalleolar ankle fracture with syndesmotic disruption Procedure Done: Delta frame external fixator right ankle with fracture reduction and debridement of skin and fracture blisters Implants: [place] external fixator Pathology: none sent Surgeon: Sylvia Cole Supervisor Force Adjustment: [facility] operating room technicians Anesthesia: General (Per LMA, ASA 3) Estimated blood loss (mL): 5 Tourniquet time (min): 0 IV fluids (mL): 800 Urine output (mL): 0 Urine output: No Velasquez Complications: None Findings: Grossly unstable trimalleolar ankle fracture dislocation with syndesmotic disruption. Subluxation upon presentation to the office and to the operating room. Extensive soft tissue necrosis and fracture blistering which was circumferential. Condition: stable Disposition: PACU (Then to same-day surgery for discharge home) Brief History: This 59-year-old gentleman presented to my office in the splint which was placed in the emergency department after he suffered a right trimalleolar ankle fracture dislocation. Imaging was obtained in the office which demonstrated that the fracture remained in a subluxed position. Additionally, the patient had been walking on the fracture causing further swelling. The fracture was noted to be quite unstable. Skin was assessed, and the patient had large circumferential fracture blisters at the time of initial evaluation. He was therefore scheduled for urgent surgery the following day. Risks and complications were discussed with him. Consents were signed. Procedure: Patient was seen in the preoperative holding area and surgical procedure was confirmed. Patient was brought to the operating theater and placed on the operating room table. After undergoing adequate general anesthesia, per LMA, ASA 3, the patient's right lower extremity was prepped and draped in usual fashion utilizing baby shampoo. The leg was draped free. Fluoroscopy was used throughout the surgical procedure. We did have a tourniquet high on the right lower extremit; however, it was not elevated. A surgical pause was performed. At the time of the surgical pause we identified the site and side of surgery as well as the patient's identity and availability of equipment. We also confirmed appropriate administration of IV antibiotics, vancomycin 1 g. Initially, 2 pins were placed in the tibia to begin the delta frame. These were placed in appropriate position for best ability. The fracture was evaluated with a closed reduction. It was felt that we could maintain and a reasonable reduction with a delta frame. A calcaneal pin was then placed in appropriate position. The fracture was manipulated. It was reduced as well as possible. Unfortunately, the blistering over the heel caused the pin to have to be placed through the area of blistering. Prior to placement of the pins a full debridement was accomplished of the fracture blisters. Once the calcaneal pin was in position, bars were placed on the delta frame. They were tightened in a position to maintain the best reduction we could achieve. This was true in AP and lateral planes. Once we were satisfied with the position of the frame, it was tightened completely. A kickstand frame was then placed to help the patient keep elevation and to assist in wound care and debridements. Sterile dressing was placed consisting of Xeroform gauze around the pins. SilvaSorb was used over the wounds. This was followed by Adaptic, fluffed fluffs, Kerlix, sterile soft roll and an Samson wrap. The patient is to remain strictly nonweightbearing. He is cautioned to keep the leg elevated as much as possible. The procedure was well tolerated without complication. The patient will be discharged home to follow-up in my office as scheduled. A wound care appointment was also made for him. Associated Problem List Diagnoses (1) Trimalleolar fracture of right ankle: Qualifiers: Encounter type: initial encounter Fracture type: closed Qualified Code(s): S82.851A - Displaced trimalleolar fracture of right lower leg, initial encounter for closed fracture
--- NOTE | 2020-08-27 12:48 | SUR.PHASEI ---
1238 PATIENT TO ROOM FROM OR. ORAL AIRWAY IN PLACE. RR EVEN AND UNLABORED. DRESSING TO RIGHT LOWER EXTREMITY, CDI.
--- NOTE | 2020-08-27 12:48 | SUR.PHASEI ---
1241 ORAL AIRWAY REMOVED. SPO2 100% ON SIMPLE MASK AT 10L.
[2020-08-27] MEDS: fentaNYL 50 mcg/mL INJ 2mL IVP (13:02)
--- NOTE | 2020-08-27 13:14 | SUR.PHASEI ---
1314 PATIENT TO OPS. NO DISTRESS. DRESSING TO RIGHT LOWER EXTREMITY, CDI. SPOUSE AT BEDSIDE. PATIENT TOLERATING ICE CHIPS.
[2020-08-27] MEDS: labetalol 5 mg/mL SDV 20mL IVP (13:55)
--- NOTE | 2020-08-27 14:26 | PC.NURSE ---
PT'S BP DISCUSSED WITH DR RICO AND SHE GAVE THE OK FOR HIM TO BE DISCHARGED. PT REQUESTING TO GO HOME.
== END 2020-08-27 14:40 | disposition home or self-care (01) ==
PROVIDERS: PCP Family Medicine Adult Medicine; Visit Provider Specialist
PROC: (CPT 11043; principal; 2020-08-27 09:40)
PROC: (CPT 11043; 2020-08-27 09:40)
DX: S82.851A Displaced trimalleolar fracture of right lower leg, initial encounter for closed fracture (principal); S90.521A Blister (nonthermal), right ankle, initial encounter; X58.XXXA Exposure to other specified factors, initial encounter; J44.9 Chronic obstructive pulmonary disease, unspecified; I10 Essential (primary) hypertension; E78.5 Hyperlipidemia, unspecified; J45.909 Unspecified asthma, uncomplicated; F32.9 Major depressive disorder, single episode, unspecified
CPT/HCPCS: 11043; 20692; 27818; 36415; 73600; 76000; 80053; 85025; 94640; 96365; 96374; C1713; J2405; J2704; J3010; J3370; J3490; J7030; J7050; J7611

== ENCOUNTER 2020-09-02 13:12 | Outpatient (CLI) | payer MEDICAID, SELFPAY | END 2020-09-02 13:13 | disposition home or self-care (01) | LOC: WOUND 13:13 | PROVIDERS: PCP Family Medicine Adult Medicine; Visit Provider Nurse Practitioner Family | DX: L97.312 Non-pressure chronic ulcer of right ankle with fat layer exposed (principal) ==

== ENCOUNTER → 2020-09-04 09:21 | Outpatient (BNVA) | payer MEDICAID, SELFPAY | PROVIDERS: PCP Family Medicine Adult Medicine; Visit Provider Specialist | DX: S82.851D Displaced trimalleolar fracture of right lower leg, subsequent encounter for closed fracture with routine healing (principal); X58.XXXD Exposure to other specified factors, subsequent encounter; Z20.822 Contact with and (suspected) exposure to COVID-19 | CPT/HCPCS: 73610; 87635 ==

== ENCOUNTER 2020-09-06 08:38 | Day surgery (SDC) | payer MEDICAID, SELFPAY ==
[2020-09-05 10:20] VITALS: BMI 35.6
[2020-09-06] VITALS (8 sets, daily range): BP systolic 90–145; BP diastolic 62–104; PULSE 67–87; RESP 12–20; TEMP 36.1–36.6; O2SAT 96–100
--- NOTE | 2020-09-06 | XR_ITS ---
WS: [id number] Right ankle, C-arm fluoroscopy views in the OR, 09/06/2020 Clinical Data: DIVYA PICS Comparison: Right ankle, 09/04/2020. Findings: The talus is now in good position. It is been pushed medially to be adjacent to the medial malleolus. XR/XR ankle RT 1V [id number] Impression: Repositioning of the talus so that it is adjacent to the medial malleolus.
--- NOTE | 2020-09-06 | SCC_ITS ---
Procedure Done: Post reduction trimalleolar ankle fracture with adjustment of external fixator and addition of stabilizing bars 26.3 seconds of fluoroscopic guidance, for a cumulative dose of 0.77 mGy, was provided to Dr. Cole by the radiology department. C-arm images of the RIGHT ankle were saved for the patient's permanent record. [facility]
[2020-09-06] MEDS: sodium chloride 0.9% 1,000 ML 30 ML IV (09:17)
[2020-09-06] MEDS: CELEcoxib 200 mg Capsule 400 MG PO (09:18)
[2020-09-06] MEDS: acetaminophen 1,000 MG/100 ML PIGGYBACK 400 MG IV (09:18)
--- NOTE | 2020-09-06 09:29 | ANES.PREANE2 ---
Pre-Anesthetic Assessment Pre-Anesthetic Assessment: Height/Weight: Height 1.85 m Weight 122.47 kg Temp Pulse Resp BP Pulse Ox 97.5 F L 87 16 90/72 98 09/06/20 08:56 09/06/20 08:56 09/06/20 08:56 09/06/20 08:56 09/06/20 08:56 Preop Diagnosis: Trimalleolar right ankle fracture with displacement in external fixator Proposed Procedure: Operation Date: 09/06/20 09:35 Proposed Procedures p closed reduction wt external fixator right ankle 02197 S82.853A(Right) - Sylvia Cole MD Familial anesthetic complications: none Was Beta Jona taken within 24 hours: N/A Was Clonidine taken within 24 hours: N/A Last intake: Intake Last Liquid Date 09/05/20 Last Liquid Time 22:00 Last Solid Date 09/05/20 Last Solid Time 22:00 Social: Social History: No alcohol and No tobacco Exam: Pre-Anes Outpt Exam: alert, oriented x 3, clear to auscultation bilaterally and regular rate & rhythm Airway: Cervical ROM: WNL MP: 3 Dentition: Full Pulmonary: Pulmonary: Asthma and COPD CV/HEM: CV/HEM: HTN Metabolic: Metabolic: Hyperlipidemia Anesthetic Plan: ASA status: 3 Anesthesia: General Risk of > 500 ml blood loss (7ml/kg in children): No Meds/Allergies Current Medications: Current Medications Generic Name Dose Route Start Last Admin Trade Name Freq PRN Reason Stop Dose Admin Sodium Chloride 1,000 mls @ 30 ml s/hr 09/06/20 08:45 09/06/20 09:17 Sodium Chloride 0.9% IV 09/07/20 08:44 30 mls/hr .Q24H DIXIE Administration PFSH Anesthesia PFSH: Medical History Asthma COPD (chronic obstructive pulmonary disease) case management patient Depression Hypertension Major depressive disorder, recurrent, moderate PTSD (post-traumatic stress disorder) Recurrent moderate major depressive disorder with anxiety Social History Smoking and tobacco status: never smoked Alcohol intake: former History of recent travel: No Data Anesthesia Cardiac Studies: No Data to Display
[2020-09-06] MEDS: vancomycin 1,000 MG in sodium chloride 0.9% 250 ML 250 MG IV (09:34)
--- NOTE | 2020-09-06 10:26 | P.PCN_ITS ---
PACU note PACU note: VSS, Good respiratory effort, report to SUPERVISOR FINISHING DEPARTMENT Post-Anesthesia Exam: awake
--- NOTE | 2020-09-06 10:26 | PM.PACU ---
PACU note PACU note: VSS, Good respiratory effort, report to FOREST FIRE EQUIPMENT OPERATOR Post-Anesthesia Exam: awake
--- NOTE | 2020-09-06 10:33 | SUR.PHASEI ---
1033- ORAL AIRWAY OUT, SIMPLE MASK AT 8LPM SAT 100%
--- NOTE | 2020-09-06 10:46 | P.HPUD_ITS ---
Surgery/Procedure H&P Update DATE OF PROCEDURE: September 06, 2020 DATE H&P PERFORMED: 09/04/20 H&P UPDATE INFORMATION: I have reviewed H&P completed within last 30 days, I have examined patient prior to procedure, No changes to prior documentation and H&P is in [facility] [place] on date indicated PREOP DIAGNOSIS: Trimalleolar right ankle fracture with displacement in external fixator PLANNED PROCEDURE: Operation Date: 09/06/20 09:35 Proposed Procedures p closed reduction [facility] external fixator right ankle 85347 S82.853A(Right) - Sylvia Cole MD Related Problem List Diagnoses (1) Trimalleolar fracture of right ankle: Qualifiers: Encounter type: initial encounter Fracture type: closed Qualified Code(s): S82.851A - Displaced trimalleolar fracture of right lower leg, initial encounter for closed fracture
--- NOTE | 2020-09-06 10:46 | PM.OP ---
Operative Report Date of procedure: September 06, 2020 Pre-op Diagnosis: Trimalleolar right ankle fracture displacement in external fixator Pre-op Diagnosis: With syndesmotic disruption Post-op diagnosis: same Post-op Findings: Unstable trimalleolar ankle fracture with syndesmotic disruption Procedure Done: Post reduction trimalleolar ankle fracture with adjustment of external fixator and addition of stabilizing bars Specimens removed/disposition: None Pathology: none sent Surgeon: Sylvia Cole Phlebotomy Manager: [facility] operating room technicians Anesthesia: General (LMA, ASA 3) Estimated blood loss (mL): 0 IV fluids (mL): 300 Complications: None Findings: Displaced trimalleolar ankle fracture. Condition: stable Disposition: PACU (Then to outpatient for discharge to home) Brief History: This 59-year-old gentleman previously underwent placement of an external fixator following close reduction of a trimalleolar fracture. At the time of that procedure, the patient had circumferential blisters, and he did require the services of the wound care clinic. He presented to my office after falling multiple times on his lower extremity. He had displaced his fracture and loosened his fixator. Therefore, he was scheduled to come to the operating room for rereduction and adjustment of his external fixator. We added multiple stabilizing bars to hopefully prevent any further incident of dislocation. He does have a history of frequent falls. Procedure: Patient was seen in the preoperative holding area and surgical procedure was confirmed. Patient was brought to the operating theater and placed on the operating room table. After undergoing adequate general anesthesia, per LMA, ASA 3, the fracture was evaluated utilizing fluoroscopy. There were no further fractures noted from the prior procedure, however, the fracture was displaced significantly from its postoperative position. Fluoroscopy was used throughout the surgical procedure. We did have a tourniquet high on the right lower extremity; however, it was not elevated. A surgical pause was performed. At the time of the surgical pause we identified the site and side of surgery as well as the patient's identity and availability of equipment. We also confirmed appropriate administration of IV antibiotics, vancomycin 1 g. The patient's frame was loosened. Reduction of the fracture was again accomplished under fluoroscopic guidance. Once we had the fracture reduced appropriately in AP and lateral planes, the frame was tightened. We also added 3 stabilizing bars. One was anterior. Then we connected the 2 bar of the delta frame to the kickstand in hopes of giving greater stability in case the patient falls once again onto his external fixator. Sterile dressing was placed consisting of Xeroform gauze around the pins. This was followed by fluffed fluffs, Kerlix, and an Samson wrap. The patient is to remain strictly nonweightbearing. He is cautioned to keep the leg elevated as much as possible. The procedure was well tolerated without complication. The patient will be discharged home to follow-up in my office as scheduled. He is advised to maintain his previous wound care appointments as well. Associated Problem List Diagnoses (1) Trimalleolar fracture of right ankle: Qualifiers: Encounter type: initial encounter Fracture type: closed Qualified Code(s): S82.851A - Displaced trimalleolar fracture of right lower leg, initial encounter for closed fracture
[2020-09-06] MEDS: HYDROcodone-acetaminophen 5-325 mg Tablet 1 TAB PO (11:06)
--- NOTE | 2020-09-06 18:00 | ANE.PACU2 ---
Inpatient post-anesthesia follow up: Airway intact: Yes Vital signs: Temperature 97.8 F Pulse Rate 70 Respiratory Rate 16 Blood Pressure 139/81 Pulse Oximetry 97 Oxygen Delivery Me thod Room Air Oxygen Flow Rate 8 Fraction of Inspir ed Oxygen Hydration adequate: Yes Nausea and vomiting: No Pain level: 2 Mental status: Baseline
== END 2020-09-06 11:40 | disposition home or self-care (01) ==
PROVIDERS: PCP Family Medicine Adult Medicine; Visit Provider Specialist
PROC: (CPT 27818; principal; 2020-09-06 09:25)
DX: S82.851A Displaced trimalleolar fracture of right lower leg, initial encounter for closed fracture (principal); X58.XXXA Exposure to other specified factors, initial encounter; J44.9 Chronic obstructive pulmonary disease, unspecified; I10 Essential (primary) hypertension; E78.5 Hyperlipidemia, unspecified
CPT/HCPCS: 27818; 73600; 76000; 96365; J2704; J3010; J3370; J7030; J7050

== ENCOUNTER 2020-09-09 14:11 | Outpatient (CLI) | payer MEDICAID, SELFPAY | END 2020-09-09 14:12 | disposition home or self-care (01) | LOC: WOUND 14:12 | PROVIDERS: PCP Family Medicine Adult Medicine; Visit Provider Nurse Practitioner Family | DX: Z09 Encounter for follow-up examination after completed treatment for conditions other than malignant neoplasm (principal) | CPT/HCPCS: 99212 ==

== ENCOUNTER → 2020-09-10 08:27 | Outpatient (BNVA) | payer MEDICAID, SELFPAY | PROVIDERS: PCP Family Medicine Adult Medicine; Visit Provider Nurse Practitioner Psychiatric/Mental Health | DX: F43.10 Post-traumatic stress disorder, unspecified (principal); F33.1 Major depressive disorder, recurrent, moderate; F41.9 Anxiety disorder, unspecified | CPT/HCPCS: 99213 ==

== ENCOUNTER → 2020-09-18 10:37 | Outpatient (BNVA) | payer MEDICAID, SELFPAY | PROVIDERS: PCP Family Medicine Adult Medicine; Visit Provider Specialist | DX: S82.851A Displaced trimalleolar fracture of right lower leg, initial encounter for closed fracture (principal); X58.XXXA Exposure to other specified factors, initial encounter | CPT/HCPCS: 73610 ==

== ENCOUNTER → 2020-09-24 15:32 | Outpatient (BNVA) | payer MEDICAID, SELFPAY | PROVIDERS: PCP Family Medicine Adult Medicine; Visit Provider Specialist | DX: S82.851A Displaced trimalleolar fracture of right lower leg, initial encounter for closed fracture (principal); Z20.822 Contact with and (suspected) exposure to COVID-19; X58.XXXA Exposure to other specified factors, initial encounter | CPT/HCPCS: 87635 ==

== ENCOUNTER 2020-09-25 15:04 | Emergency (ER) | payer MEDICAID, SELFPAY ==
[2020-09-25 15:10] VITALS: BP 147/90; PULSE 68; RESP 16; TEMP 36.4; O2SAT 93; BMI 37.6
[2020-09-25 15:13] VITALS: BP 153/94; PULSE 70; RESP 18; O2SAT 94
--- NOTE | 2020-09-25 15:43 | XR_ITS ---
WS: [id number] Right ankle, AP and lateral views, 09/25/2020 Clinical Data: ankle pain Comparison: Right ankle, 09/18/2020. Findings: External skeletal fixation is reducing the medial malleolar fracture of the right ankle and the commi nuted distal right fibular fracture. The ankle mortise is in relatively good position. XR/XR ankle RT 2V 53060 Impression: No change from the previous right ankle x-ray.
[2020-09-25 17:12] VITALS: BP 153/94; PULSE 87; PULSE 88; RESP 18; O2SAT 95
--- NOTE | 2020-09-25 17:23 | ED_ITS ---
HPI - Extremity Problem General: Chief complaint: Extremity Problem,Nontraumatic Stated complaint: RT LEG/FOOT PAIN Time Seen by Provider: 09/25/20 17:12 Source: patient Mode of arrival: wheelchair Limitations: no limitations History of Present Illness: HPI Narrative: Patient is a nice 60-year-old male who presents to the ED today along with his for complaints of pain to his right ankle. Patient tells me last month he sustained a trimalleolar fracture. He tells me he has had several surgeries on the ankle by Dr. Cole. He currently has an external fixator. He was scheduled for surgery this week however due to some miscommunication he tells me he did not get the COVID pre- screening completed in time the surgery was canceled and scheduled for Wednesday. He tells me he is out of his pain medication. They were scheduled to refill this following the surgery however now that this is rescheduled he has none. He has been taking OTC Tylenol without much relief. I have tried to contact Dr. Cole's office today without success. MD Complaint: joint pain (R ankle) Pain Consistency: constant Location: right and lower extremity Radiation: none Relieving factors: nothing Exacerbating factors: nothing Associated symptoms: Reports no associated symptoms Review of Systems Musc: Reports: joint pain (R ankle) Skin/Breast: Reports: other (denies drainage/redness ) [facility] PFSH: Medical History Asthma COPD (chronic obstructive pulmonary disease) case management patient Depression Hypertension Major depressive disorder, recurrent, moderate PTSD (post-traumatic stress disorder) Recurrent moderate major depressive disorder with anxiety Social History Smoking and tobacco status: never smoked Alcohol intake: former History of recent travel: No Physical Exam Const: COMMON NORMALS: no acute distress, patient oriented x3, no limitations and alert Extremity: NARRATIVE EXTREMITY EXAM: external fix to R ankle; dressings were not removed for visual inspection; extremity NV intact Neuro: COMMON NORMALS: patient oriented x3 SENSORIUM/ORIENTATION: Yes alert Course Vital Signs: Vital signs: Vital Signs Temperature 97.6 F 09/25/20 15:10 Pulse Rate 87 09/25/20 17:12 Respiratory Rate 18 09/25/20 17:12 Blood Pressure 153/94 09/25/20 17:12 Pulse Oximetry 95 09/25/20 17:12 MDM - Extremity (Nontraumatic) MDM Narrative: Medical decision making narrative: XR ordered in triage by another provider normal. I will write pt for pain medication. Recommend followup with Dr. Cole as they probably won't last him until his surgery next Wednesday. Imaging Data^: XR R ankle: Radiologist's impression: [address] [address] XRay Report Signed Patient: Modesto Arnold AUnmisa #: [id number] : [id number]#:[id number] Age/Sex: 60 / MADM Date: 09/25/20 Loc: ERRoom/Bed: Attending Dr: Ordering Provider/Ordering MD: Nelson Arora MD Date of Service: 09/25/20 Procedure(s): XR ankle RT 2V 37825 Accession Number(s): [id number] Report Number: [id number] WS: [id number] Right ankle, AP and lateral views, 09/25/2020 Clinical Data: ankle pain Comparison: Right ankle, 09/18/2020. Findings: External skeletal fixation is reducing the medial malleolar fracture of the right ankle and the comminuted distal right fibular fracture. The ankle mortise is in relatively good position. XR/XR ankle RT 2V [id number] Impression: No change from the previous right ankle x-ray. Dictated By:Christy Mg MD Signed By:Christy Mg MDSigned Date/Time:09/25/201607 DD/ 1607 Discharge Plan Discharge Patient Disposition: Home Clinical Impression: Pain following surgery or procedure Condition: Stable Prescriptions: Continued hydrocodone-acetaminophen 5-325 mg tablet 1 tab PO Q4H PRN (Reason: pain) Qty: 30 RF: 0 No Action albuterol sulfate [ProAir HFA] 90 mcg/actuation HFA aerosol inhaler 2 puff INHALATION Q6H PRN (Reason: shortness of breath or wheezing) 30 Days Qty: 18 RF: 4 fluoxetine 60 mg tablet 60 mg PO QAM Qty: 30 RF: 1 alprazolam 1 mg tablet 1 mg PO BID PRN (Reason: anxiety) Qty: 45 RF: 1 (DME) Wheelchair See Rx Instructions .ROUTE .MEDSUPPLY Qty: 1 RF: 0 clindamycin HCl 300 mg capsule 300 mg PO QID RF: 0 Tylenol Extra Strength 500 mg Tablet 1,000 - 1,500 mg PO PRN RF: 0 atorvastatin 20 mg tablet 20 mg PO BEDTIME RF: 0 quetiapine 200 mg tablet 200 mg PO BEDTIME RF: 0 Mobic 7.5 mg tablet 7.5 mg PO QAM RF: 0 losartan 100 mg tablet 100 mg PO QAM RF: 0 Seroquel 400 mg tablet 400 mg PO BEDTIME RF: 0 Discharge Orders: Discharge ED (Routine); Ordered 09/25/20 Ordered By: Lacey Smith Referrals: Grayson Canchola MD [Primary Care Provider] - Patient Instructions: Opioid Safety Activity Restrictions/Additional Instructions: [facility] is committed to fighting the nationwide opiate epidemic. We are providing ALL patients with information regarding opiate safety. If you received opiate pain medication during your stay or if you received a prescription for opiate pain medication-please review this handout. If not, you may disregard. Thank you. Please follow-up with Dr. Cole as the pain medication I gave you today will probably not last you until your surgery on Wednesday. Coding Level of Care Code ED Resource Manager for Keyon Johnson
[2020-09-25 17:47] VITALS: BP 139/92; PULSE 88; RESP 18; TEMP 36.6; O2SAT 94
== END 2020-09-25 17:48 ==
PROVIDERS: Emergency Provider Physician Assistant; PCP Family Medicine Adult Medicine
DX: G89.18 Other acute postprocedural pain (principal); J44.9 Chronic obstructive pulmonary disease, unspecified; I10 Essential (primary) hypertension
CPT/HCPCS: 73600; 99282

== ENCOUNTER 2020-09-27 08:02 | Day surgery (SDC) | payer MEDICAID, SELFPAY ==
[2020-09-26 13:56] VITALS: BMI 37.6
[2020-09-27] VITALS (10 sets, daily range): BP systolic 70–132; BP diastolic 42–78; PULSE 80–86; RESP 15–26; TEMP 36.4–36.9; O2SAT 93–97
--- NOTE | 2020-09-27 | XR_ITS ---
WS: [id number] Right ankle, C-arm fluoroscopy views, 09/27/2020 Clinical Data: ORIF IN SURG Comparison: Right ankle, 09/25/2020. Findings: A lateral plate has been applied to the distal right fibula with multiple screws to reduce the distal right fibular fracture. There are bands across the distal tibia and fibula to reduce the medial mall eolar fracture. The external skeletal fixation has been removed. XR/XR ankle RT min 3V* [id number] Impression: Internal fixation of bimalleolar fracture.
--- NOTE | 2020-09-27 | SCC_ITS ---
Procedure Done: Removal right ankle fixator. Open reduction internal fixation right trimalleolar ankle fracture with syndesmotic disruption. 134.0 seconds of fluoroscopic guidance, for a cumulative dose of 4.72 mGy, was provided to Dr. Cole by the radiology department. C-arm images of the RIGHT ankle were saved for the patient's permanent record. [facility]
--- NOTE | 2020-09-27 08:15 | W.PM.OPSUD ---
Surgery/Procedure H&P Update DATE OF PROCEDURE: September 27, 2020 DATE H&P PERFORMED: 09/18/20 H&P UPDATE INFORMATION: I have reviewed H&P completed within last 30 days, I have examined patient prior to procedure, No changes to prior documentation and H&P is in [facility] [place] on date indicated PREOP DIAGNOSIS: Right trimalleolar ankle fracture status post external fixator fixation PLANNED PROCEDURE: Operation Date: 09/27/20 09:25 Proposed Procedures p REMOVAL OF RIGHT EXTERNAL FIXATOR WITH OPEN REDUCTION INTERNAL FIXATION TRIMALLEOLAR FRACTURE WITH PROBABLE SYNDOSMATIC FIXATION 16011 43206 26104 s82.853A(Right) - Sylvia Cole MD Related Problem List Diagnoses (1) Acute disruption of syndesmosis of ankle joint: (2) Trimalleolar fracture of right ankle: Qualifiers: Encounter type: initial encounter Fracture type: closed Qualified Code(s): S82.851A - Displaced trimalleolar fracture of right lower leg, initial encounter for closed fracture
[2020-09-27] MEDS: sodium chloride 0.9% 1,000 ML 999 ML IV (08:30)
[2020-09-27] MEDS: vancomycin 1,000 MG in sodium chloride 0.9% 250 ML 250 MG IV (09:00)
[2020-09-27] MEDS: CELEcoxib 200 mg Capsule 400 MG PO (09:09)
--- NOTE | 2020-09-27 09:20 | ANES.PREANE2 ---
Pre-Anesthetic Assessment Pre-Anesthetic Assessment: Height/Weight: Height 1.8 m Weight 122.47 kg Temp Pulse Resp BP Pulse Ox 98.4 F 85 16 87/59 93 09/27/20 08:13 09/27/20 08:13 09/27/20 08:13 09/27/20 09:06 09/27/20 08:13 Preop Diagnosis: Right trimalleolar ankle fracture Proposed Procedure: Operation Date: 09/27/20 09:25 Proposed Procedures p REMOVAL OF RIGHT EXTERNAL FIXATOR WITH OPEN REDUCTION INTERNAL FIXATION TRIMALLEOLAR FRACTURE WITH PROBABLE SYNDOSMATIC FIXATION 08563 05630 43314 s82.853A(Right) - Sylvia Cole MD Was Beta Jona taken within 24 hours: N/A Was Clonidine taken within 24 hours: N/A Last intake: Intake Last Liquid Date 09/27/20 Last Liquid Time 02:00 Last Solid Date 09/27/20 Last Solid Time 02:00 Social: Social History: Tobacco and No alcohol Exam: Pre-Anes Outpt Exam: alert, oriented x 3 and regular rate & rhythm Airway: Submandibular: WNL Cervical ROM: WNL MP: 2 Dentition: False Pulmonary: Pulmonary: Asthma and COPD Metabolic: Metabolic: Morbid obesity Musc/skel: Comments: Chronic pain/opioid Neuropsych: Neuropsych: Anxiety and Depression Anesthetic Plan: ASA status: 3 Anesthesia: General Other: NPO at 0200 (postponing surgery until 1000, hypotension upon admit treating with fluid/albumin) Risk of > 500 ml blood loss (7ml/kg in children): No Meds/Allergies Current Medications: Current Medications Generic Name Dose Route Start Last Admin Trade Name Freq PRN Reason Stop Dose Admin Sodium Chloride 1,000 mls @ 30 ml s/hr 09/27/20 08:15 09/27/20 08:30 Sodium Chloride 0.9% IV 09/28/20 08:14 999 mls/hr .Q24H DIXIE Administration PFSH Anesthesia PFSH: Medical History Asthma COPD (chronic obstructive pulmonary disease) case management patient Depression Hypertension Major depressive disorder, recurrent, moderate PTSD (post-traumatic stress disorder) Recurrent moderate major depressive disorder with anxiety Social History Smoking and tobacco status: never smoked Alcohol intake: former History of recent travel: No Data Anesthesia CBC & Chem 7: 09/27/20 08:50 09/27/20 08:50 Cardiac Studies: No Data to Display
[2020-09-27 09:22] LABS: Basophils % 0.5 %; Eosinophils # 0.4 10^3/uL (0.0-0.8); Eosinophils % 6.5 %; Hematocrit 33.8 % (42.0-52.0); Hemoglobin 10.9 g/dL (11.7-16.6); Lymphocytes # 1.4 10^3/uL (0.8-4.8); Lymphocytes % 21.1 %; Mean Corpuscular HGB Conc 32.2 g/dL (30.0-36.0); Mean Corpuscular Volume 93.1 fL (80-94); Mean Platelet Volume 9.5 fL (7.4-10.4); Monocytes # 0.9 10^3/uL (0.2-0.9); Monocytes % 14.4 %; Neutrophils % 57.2 %; Nucleated Red Blood Cells % 0 %; Platelet Count 324 10^3/cmm (130-400); Red Blood Count 3.63 10^6/uL (4.1-5.3); Red Cell Distribution Width 13.4 % (12.1-15.1); White Blood Count 6.5 10^3/uL (4.0-10.0)
[2020-09-27 09:29] LABS: Alanine Aminotransferase 36 U/L (0-41); Albumin Level 4.2 g/dL (3.5-5.2); Alkaline Phosphatase 196 IU/L (40-130); Anion Gap 20.4 (5-19); Aspartate Amino Transferase 26 U/L (0-40); Blood Urea Nitrogen 39 mg/dL (6-20); Calcium 8.6 mg/dL (8.5-10.5); Carbon Dioxide 21 mmol/L (22-29); Chloride 92 mmol/L (98-107); Globulin 3.2 g/dL (1.3-4.6); Glomerular Filtration Rate 15.9 mL/min (90-130); Glucose 107 mg/dL (65-115); Osmolality Calculated 280 mOsm/kg (285-295); Potassium 3.4 mmol/L (3.5-5.1); Sodium 130 mmol/L (136-145); Total Bilirubin 0.4 mg/dL (0.15-1.2); Total Protein 7.4 g/dL (6.6-8.7)
[2020-09-27] MEDS: acetaminophen 1,000 MG/100 ML PIGGYBACK 400 MG IV (10:07)
--- NOTE | 2020-09-27 10:08 | SUR.OPER ---
tourniquet placed, physician in room removing external hardware
[2020-09-27] MEDS: ceFAZolin 1,000 mg SDV 1000 MG IRRIGATION (10:51)
[2020-09-27 11:39] LABS: Add Urine Microscopic? YES; Bilirubin Urine 1+ (Negative); Blood Urine Trace (Negative); Glucose Urine UA Norm (Normal); Ketones Urine Negative (Negative); Leukocyte Esterase Urine Negative (Negative); Nitrate Urine Negative (Negative); Protein Urine Neg (Negative); Specific Gravity, Urine 1.025 (1.005-1.030); Urine Appearance Clear (CLEAR); Urine Color Yellow (Yellow); Urobilinogen Urine Norm (Negative); pH Urine 5 (5-7)
[2020-09-27 11:40] LABS: Bacteria Urine 1+ /hpf; RBC Urine 0-4 /hpf (0-2)
[2020-09-27 11:41] LABS: Add Urine Culture? No
--- NOTE | 2020-09-27 12:36 | SUR.PHASEI ---
PT AWAKE ALERT ON ARRIVAL TO PACU, PT ABLE TO MOVE BILAT FEET AND KNEES, PT DENIES PAIN , VSS SPINAL ANESTHESIA WELL BELOW T-12 LEVEL, PT TAKING ICE CHIPS AND IS ON RA.
--- NOTE | 2020-09-27 12:37 | SUR.PHASEI ---
PT HAS A HIRSCH CATHETER TO DD YELLOW URINE TO TUBING AND BAG.
--- NOTE | 2020-09-27 13:13 | P.OP_ITS ---
Operative Report Date of procedure: September 27, 2020 Pre-op Diagnosis: Right trimalleolar ankle fracture status post external fixator fixation Pre-op Diagnosis: With disruption syndesmosis Post-op diagnosis: same Post-op Findings: Medial malleolus looked in good position anatomically Procedure Done: Removal right ankle fixator. Open reduction internal fixation right trimalleolar ankle fracture with syndesmotic disruption. Implants: [employer] lateral fibular plate 113mm, [employer] syndesmotic fixation device x2 Pathology: none sent Surgeon: Sylvia Cole [employer] Aide: [facility] operating room technicians Anesthesia: MAC (With spinal anesthetic, ASA 3) Estimated blood loss (mL): 30 Tourniquet time (min): 78 Tourniquet time: At 250 mmHg IV fluids (mL): 2,500 Urine output (mL): 60 Complications: None Findings: Fibrous tissue lateral malleolar fracture with good position of the medial malleolus and evidence of syndesmotic disruption. Condition: stable Disposition: PACU (Then to same-day surgery for discharge to home) Brief History: This 60-year-old was in his usual state of health when he fell suffering a trimalleolar ankle fracture which was significantly displaced and included syndesmotic disruption. When the patient was seen in the office, he had circumferential blistering, therefore, initially, he was scheduled for an external fixation. The external fixator was placed uneventfully, but the patient fell onto his leg short while after dislodging the external fixator. He was taken back to the operating room for tightening of the fixator and repositioning of the fracture. He now presents for definitive fracture repair including syndesmotic fixation and lateral ankle plate. Procedure: Patient was seen in the preoperative holding area and leg was marked. Patient was brought to the operating theater and placed on the operating room table. After undergoing adequate spinal anesthesia supplemented with MAC, ASA 3. Prior to prepping and draping, the patient's external fixator was removed. This was accomplished without difficulty. The patient's right lower extremity was prepped and draped in usual fashion utilizing DuraPrep. The leg was draped free. Fluoroscopy was used throughout the surgical procedure. We did have a tourniquet high on the right lower extremity. This was elevated to 250 mmHg and total tourniquet time was 78 minutes. Tourniquet was elevated without exsanguination of the leg. A surgical pause was performed. At the time of the surgical pause we identified the site and side of surgery as well as the patient's identity and availability of equipment. We also confirmed appropriate administration of IV antibiotics, vancomycin 1 g as well as Ofirmev 1 g. Following the above, an incision was made centering over the patient's distal fibular shaft fracture. The incision was continued proximally and distally to allow placement of the plate. The plate was placed on the lateral malleolus and extended proximally to have a minimum of 6 cortices. The fracture was evaluated, and there was noted to be significant fibrous tissue between the fracture fragments. This was debrided with a combination of elevator, curette, and rongeur. Once it was debrided, we were able to reduce the fracture nearly anatomically. This was held with a clamp while we evaluate the fracture and chose the appropriate plate. The [employer] 113 mm lateral fibular plate plate was attached with standard technique. Primarily, we used locking screws in the plate, but we did leave 2 screw holes empty for placement of syndesmotic fixation. Once the plate was appropriately attached, we irrigated the wound. The syndesmotic fixation device was then placed without difficulty. We placed 2 [employer] devices with standard technique attempting to close down the syndesmotic disruption. This did require 2 small incisions medially. We evaluated the medial malleolus, and there was no need for operative intervention in the form of an incision, as the malleolus was felt to be in near anatomic position. Further evaluation with stress testing demonstrated that the ankle was stable. The lateral incision was closed with a combination of 0 Vicryl deep and 2-0 Monocryl in the subcutaneous tissues. The skin was then closed with skin renee. Medially, the 2 small incisions for placement of the syndesmotic fixation device were also closed with renee. A sterile dressing was placed consisting of Xeroform gauze, 4 x 4's, sterile soft roll and an Samson wrap. The patient was placed in a Cam Walker boot and is to remain nonweightbearing. The procedure was well tolerated without complication. Tourniquet time was 78 minutes at 250 mmHg. The patient will be discharged home to follow-up in my office as scheduled. Associated Problem List Diagnoses (1) Trimalleolar fracture of right ankle: Qualifiers: Encounter type: initial encounter Fracture type: closed Qualified Code(s): S82.851A - Displaced trimalleolar fracture of right lower leg, initial encounter for closed fracture (2) Acute disruption of syndesmosis of ankle joint:
--- NOTE | 2020-09-27 16:23 | ANE.PACU2 ---
Inpatient post-anesthesia follow up: Airway intact: Yes Vital signs: Temperature 97.6 F Pulse Rate 81 Respiratory Rate 18 Blood Pressure 102/58 Pulse Oximetry 95 Oxygen Delivery Me thod Room Air Oxygen Flow Rate Fraction of Inspir ed Oxygen Hydration adequate: Yes Nausea and vomiting: No Pain level: 2 Mental status: Baseline
== END 2020-09-27 14:05 | disposition home or self-care (01) ==
PROVIDERS: PCP Family Medicine Adult Medicine; Visit Provider Specialist
PROC: (CPT 20694; principal; 2020-09-27 09:15)
PROC: (CPT 20694; 2020-09-27 09:15)
DX: S82.851A Displaced trimalleolar fracture of right lower leg, initial encounter for closed fracture (principal); W19.XXXA Unspecified fall, initial encounter; J44.9 Chronic obstructive pulmonary disease, unspecified; E66.01 Morbid (severe) obesity due to excess calories; Z68.37 Body mass index [BMI] 37.0-37.9, adult; G89.29 Other chronic pain; Z79.891 Long term (current) use of opiate analgesic
CPT/HCPCS: 20694; 27823; 27829; 73610; 76000; 80053; 81001; 85025; 96365; J0690; J2250; J2405; J2704; J3010; J3370; J3490; J7030; J7050; P9041

== ENCOUNTER → 2020-10-31 11:51 | Outpatient (BNVA) | payer MEDICAID, SELFPAY | PROVIDERS: PCP Family Medicine Adult Medicine; Visit Provider Specialist | DX: Z47.89 Encounter for other orthopedic aftercare (principal); S82.451D Displaced comminuted fracture of shaft of right fibula, subsequent encounter for closed fracture with routine healing; X58.XXXD Exposure to other specified factors, subsequent encounter | CPT/HCPCS: 73610 ==

== ENCOUNTER → 2020-12-16 13:11 | Outpatient (BNVA) | payer MEDICAID, SELFPAY | PROVIDERS: PCP Family Medicine Adult Medicine; Visit Provider Nurse Practitioner Psychiatric/Mental Health | DX: F43.10 Post-traumatic stress disorder, unspecified (principal); F33.1 Major depressive disorder, recurrent, moderate; F41.9 Anxiety disorder, unspecified | CPT/HCPCS: 99214 ==

== ENCOUNTER → 2021-02-13 08:21 | Outpatient (BNVA) | payer MEDICAID, SELFPAY | PROVIDERS: PCP Family Medicine Adult Medicine; Visit Provider Nurse Practitioner Psychiatric/Mental Health | DX: F43.10 Post-traumatic stress disorder, unspecified (principal); F33.1 Major depressive disorder, recurrent, moderate; F41.9 Anxiety disorder, unspecified | CPT/HCPCS: 99213 ==

== ENCOUNTER → 2021-05-08 08:47 | Outpatient (BNVA) | payer MEDICAID, SELFPAY | PROVIDERS: PCP Family Medicine Adult Medicine; Visit Provider Nurse Practitioner Psychiatric/Mental Health | DX: F43.10 Post-traumatic stress disorder, unspecified (principal); F33.1 Major depressive disorder, recurrent, moderate; F41.9 Anxiety disorder, unspecified | CPT/HCPCS: 99213 ==

== ENCOUNTER 2021-07-08 23:30 | Emergency (ER) | payer MEDICAID, SELFPAY ==
[2021-07-08 23:31] VITALS: BP 144/92; PULSE 98; RESP 18; TEMP 36.6; O2SAT 94; BMI 33.5
--- NOTE | 2021-07-08 23:41 | XRR_ITS ---
PROCEDURE INFORMATION: Exam: XR Chest Exam date and time: 07/08/2021 11:41 PM Age: 60 years old Clinical indication: Shortness of breath; Patient HX: Worsening SOB x 3 weeks. TECHNIQUE: Imaging protocol: XR of the chest. Views: 1 view. COMPARISON: CR Chest 2 views* 19759 03/22/2019 10:25 AM FINDINGS: Lungs: There is new right hilar mass or hilar enlargement. Further evaluation such as with CT scan of the chest is suggested. No focal infiltrate is identified. Pleural spaces: Unremarkable. No pleural effusion. No pneumothorax. Heart/Mediastinum: Heart is within normal limits of size. Bones/joints: Unremarkable. XR/XR chest 1V portable [id number] IMPRESSION: Right hilar enlargement. Mass lesion suspected. Further evaluation suggested.
[2021-07-08 23:47] VITALS: O2SAT 93
--- NOTE | 2021-07-08 23:53 | W.ED.SOB ---
HPI - SOB/Dyspnea General: Chief Complaint: Shortness of Breath/Dyspnea Stated Complaint: DIFF. BREATHING Time Seen by Provider: 07/08/21 23:33 Source: patient Mode of arrival: ambulatory Limitations: no limitations History of Present Illness: HPI Narrative: 60-year-old male has a history of asthma states that over the last 3 4 hours he been having increasing wheezing difficulty breathing EMS states that pulse ox 88% on the arrived if given a breathing treatment in route he states he feels improved still does have some wheezing dyspnea he states he feels much improved. Denies any chest pain denies any fever he states he has had a cough. Denies any vomiting or diarrhea. Associated symptoms: Deny abdominal pain, chest pain, fever(s), nausea or vomiting Review of Systems Const: Denies: fever(s), chills, body aches or change in appetite Eyes: Denies: blurry vision or eye discomfort ENMT: Denies: throat pain or dental pain Card: Denies: chest pain Resp: Reports: dyspnea, non-productive cough and wheezing GI: Denies: abdominal pain, nausea, vomiting or diarrhea : Denies: dysuria Musc: Denies: neck pain or back pain Skin/Breast: Denies: rash Neuro: Denies: headache(s) Psych: Denies: depression Cordell/Lymph: Denies: easy bruising All/Imm: Denies: urticaria PFSH ED PFSH: Medical History Acute bronchitis Acute disruption of syndesmosis of ankle joint Asthma Colon cancer screening COPD (chronic obstructive pulmonary disease) case management patient Hypertension Left hand pain Psychiatric care PTSD (post-traumatic stress disorder) Recurrent moderate major depressive disorder with anxiety Social History Smoking and tobacco status: never smoked Alcohol intake: former History of recent travel: No Physical Exam Const: COMMON NORMALS: no acute distress, patient oriented x3 and healthy appearing HENMT: COMMON NORMALS: normocephalic and atraumatic HEAD & SCALP: normocephalic and atraumatic Eye: COMMON NORMALS: Equal, round and reactive pupils present and EOMs intact bilaterally PUPIL: Yes Equal, round and reactive pupils present Neck/C-Spine: COMMON NORMALS: full ROM and supple Chest: COMMONS NORMALS: normal inspection of the chest and normal palpation of entire chest wall Resp: COMMON NORMALS: normal respiratory effort, No retractions and No use of accessory muscles AUSCULTATION: wheezes Cardio: COMMON NORMALS: regular rate, regular rhythm and No murmurs present (Cardio) RATE: regular rate RHYTHM: regular rhythm GI: COMMON NORMALS: Normal to inspection, nondistended, normoactive bowel sounds present, Soft to palpation, non-tender and no masses PALPATION: Yes Soft to palpation Extremity: COMMON NORMALS: normal to inspection and full ROM Neuro: COMMON NORMALS: patient oriented x3, moves all extremities and no focal motor deficits Psych: COMMON NORMALS: mental status grossly normal, Normal thought process present and cooperative THOUGHT PROCESS: Normal thought process present Skin: COMMON NORMALS: no rashes or lesions noted and no wounds GENERAL SKIN EXAM: no rashes or lesions noted Course Vital Signs: Vital signs: Vital Signs Temperature 97.9 F 07/08/21 23:31 Pulse Rate 92 07/08/21 23:59 Respiratory Rate 18 07/08/21 23:59 Blood Pressure 144/92 07/08/21 23:31 Pulse Oximetry 94 07/08/21 23:59 MDM - SOB/Dyspnea Medical Decision Making Patient presents here with an asthma exacerbation he is well-appearing here after breathing treatments no longer requiring any oxygen. Will prescribe him albuterol along with steroid CT shows no mass or pneumonia or PE he is to follow-up with PCP and return if worsening he understands agrees to plan. Lab Data : 07/09/21 00:00 07/09/21 00:00 Labs/Radiology: Radiology Impressions Chest X-Ray 07/08/21 23:41 IMPRESSION: Right hilar enlargement. Mass lesion suspected. Further evaluation suggested. Chest CTA 07/09/21 00:35 IMPRESSION: 1. Negative for pulmonary embolism. 2. No focal pneumonia. 3. Incidental left lower lobe pulmonary nodule. 4. For patients at low risk (minimal or absent history of smoking and of other known risk factors), recommend CT Chest at 6-12 months, then consider CT Chest at 18-24 months. For patients at high risk (history of smoking or of other known risk factors), recommend CT Chest at 6-12 months, then CT Chest at 18-24 months. (Reference: Jana) REFERENCES: Jana Torres et al. Guidelines for Management of Incidental Pulmonary Nodules Detected on CT Images: From the Fleischner Society 2017. Radiology. 2017;284(1):228-243. Laboratory Results WBC 5.8 10^3/uL (4.0-10.0) 07/09/21 00:00 RBC 4.04 10^6/uL (4.1-5.3) L 07/09/21 00:00 Hgb 12.4 g/dL (11.7-16.6) 07/09/21 00:00 Hct 38.1 % (42.0-52.0) L 07/09/21 00:00 MCV 94.3 fl (80-94) H 07/09/21 00:00 MCH 30.7 pg (28.0-34.0) 07/09/21 00:00 MCHC 32.5 g/dL (30.0-36.0) 07/09/21 00:00 RDW 14.0 % (12.1-15.1) 07/09/21 00:00 Plt Count 332 10^3/cmm (130-400) 07/09/21 00:00 MPV 8.6 fL (7.4-10.4) 07/09/21 00:00 Neut % (Auto) 55.5 % 07/09/21 00:00 Lymph % (Auto) 27.5 % 07/09/21 00:00 Garfield % (Auto) 9.3 % 07/09/21 00:00 Eos % (Auto) 6.6 % 07/09/21 00:00 Baso % (Auto) 0.9 % 07/09/21 00:00 Neut # (Auto) 3.22 10^3/uL (1.8-7.7) 07/09/21 00:00 Lymph # (Auto) 1.6 10^3/uL (0.8-4.8) 07/09/21 00:00 Garfield # (Auto) 0.5 10^3/uL (0.2-0.9) 07/09/21 00:00 Eos # (Auto) 0.4 10^3/uL (0.0-0.8) 07/09/21 00:00 Baso # (Auto) 0.1 10^3/uL (0.0-0.1) 07/09/21 00:00 Nucleated RBC % (auto) 0 % 07/09/21 00:00 Nucleated RBCs # 0.0 /100WBC 07/09/21 00:00 PT 12.70 SECONDS (12.1-14.9) 07/09/21 00:00 INR 0.92 (0.8-1.2) 07/09/21 00:00 Sodium 135 mmol/L (136-145) L 07/09/21 00:00 Potassium 3.7 mmol/L (3.5-5.1) 07/09/21 00:00 Chloride 98 mmol/L (98-107) 07/09/21 00:00 Carbon Dioxide 24 mmol/L (22-29) 07/09/21 00:00 Anion Gap 16.7 (5-19) 07/09/21 00:00 BUN 17 mg/dL (6-20) 07/09/21 00:00 Creatinine 1.0 mg/dL (0.7-1.2) 07/09/21 00:00 GFR Calculation 76.5 mL/min (90-130) L 07/09/21 00:00 Glucose 134 mg/dL (65-115) H 07/09/21 00:00 Calculated Osmolality 284 mOsm/kg (285-295) L 07/09/21 00:00 Calcium 8.5 mg/dL (8.5-10.5) 07/09/21 00:00 Total Bilirubin 0.2 mg/dL (0.15-1.2) 07/09/21 00:00 AST 16 U/L (0-40) 07/09/21 00:00 ALT 22 U/L (0-41) 07/09/21 00:00 Alkaline Phosphatase 123 IU/L (40-130) 07/09/21 00:00 NT-Pro-B Natriuret Pep 436 pg/mL (0-125) H 07/09/21 00:00 Total Protein 6.8 g/dL (6.6-8.7) 07/09/21 00:00 Albumin 4.0 g/dL (3.5-5.2) 07/09/21 00:00 Globulin 2.8 g/dL (1.3-4.6) 07/09/21 00:00 SARS-CoV-2 Ag (Rapid) Negative (Negative) 07/09/21 00:[address] Chest: I personally reviewed and interpreted this imaging study as follows: Radiologist's impression: IMPRESSION: 1. Negative for pulmonary embolism. 2. No focal pneumonia. 3. Incidental left lower lobe pulmonary nodule. 4. For patients at low risk (minimal or absent history of smoking and of other known risk factors), recommend CT Chest at 6-12 months, then consider CT Chest at 18-24 months. For patients at high risk (history of smoking or of other known risk factors), recommend CT Chest at 6-12 months, then CT Chest at 18-24 months. (Reference: Jana) Discharge Plan Discharge Patient Disposition: Home Clinical Impression: Asthma exacerbation Condition: Stable Prescriptions: New prednisone 50 mg tablet 50 mg PO DAILY Qty: 5 0RF albuterol sulfate 90 mcg/actuation HFA aerosol inhaler 2 inh INHALATION Q6H PRN (Reason: shortness of breath or wheezing) Qty: 8 0RF No Action fluoxetine 40 mg capsule 80 mg PO QAM Qty: 60 2RF Rx Instructions: Take two capsules by mouth every morning quetiapine 200 mg tablet 600 mg PO BEDTIME Qty: 90 2RF Rx Instructions: take 3 tablets daily at bedtime alprazolam 1 mg tablet 1 mg PO BID PRN (Reason: anxiety) Qty: 75 1RF Rx Instructions: Take one tablet twice daily, if needed for anxiety albuterol sulfate [Ventolin HFA] 90 mcg/actuation HFA aerosol inhaler See Rx Instructions .ROUTE .COMPLEX Qty: 18 5RF Dose Instruction: INHALE 2 PUFFS EVERY SIX HOURS NEEDED FOR SHORTNESS OF BREATH OR WHEEZING Rx Instructions: INHALE 2 PUFFS EVERY SIX HOURS NEEDED FOR SHORTNESS OF BREATH OR WHEEZING losartan 100 mg tablet 100 mg PO QAM 90 Days Qty: 90 1RF (DME) Wheelchair See Rx Instructions .ROUTE .MEDSUPPLY Qty: 1 0RF Rx Instructions: As directed meloxicam [Mobic] 7.5 mg tablet 7.5 mg PO QAM 0RF Label Comments: patient states he has been out for several months has an appt with PCP 01/01/21 atorvastatin 20 mg tablet 20 mg PO BEDTIME 0RF Label Comments: patient states he has been out for several months has an appt with PCP 01/01/21 Discharge Orders: Discharge ED (Routine); Ordered 07/09/21 Ordered By: Genesis Hicks Referrals: Grayson Canchola MD [Primary Care Provider] - 1-3 days Discharge Diet: Advance as tolerated Discharge Activity: Resume usual activity Coding Level of Care Code ED Edge Stripper for Chg Fwd Exam Comprehensive
[2021-07-08 23:59] VITALS: PULSE 92; RESP 18; O2SAT 94
[2021-07-09 00:05] LABS: Basophils # 0.1 10^3/uL (0.0-0.1); Basophils % 0.9 %; Eosinophils # 0.4 10^3/uL (0.0-0.8); Eosinophils % 6.6 %; Hematocrit 38.1 % (42.0-52.0); Hemoglobin 12.4 g/dL (11.7-16.6); Lymphocytes # 1.6 10^3/uL (0.8-4.8); Lymphocytes % 27.5 %; Mean Corpuscular HGB Conc 32.5 g/dL (30.0-36.0); Mean Corpuscular Hemoglobin 30.7 pg (28.0-34.0); Mean Corpuscular Volume 94.3 fl (80-94); Mean Platelet Volume 8.6 fL (7.4-10.4); Monocytes # 0.5 10^3/uL (0.2-0.9); Monocytes % 9.3 %; Neutrophils # 3.22 10^3/uL (1.8-7.7); Neutrophils % 55.5 %; Nucleated Red Blood Cells % 0 %; Platelet Count 332 10^3/cmm (130-400); Red Blood Count 4.04 10^6/uL (4.1-5.3); White Blood Count 5.8 10^3/uL (4.0-10.0)
[2021-07-09 00:18] LABS: INR 0.92 (0.8-1.2)
[2021-07-09 00:27] LABS: SARS Covid-2 Antigen Negative (Negative)
[2021-07-09 00:31] LABS: Alanine Aminotransferase 22 U/L (0-41); Alkaline Phosphatase 123 IU/L (40-130); Aspartate Amino Transferase 16 U/L (0-40); Blood Urea Nitrogen 17 mg/dL (6-20); Calcium 8.5 mg/dL (8.5-10.5); Carbon Dioxide 24 mmol/L (22-29); Chloride 98 mmol/L (98-107); Globulin 2.8 g/dL (1.3-4.6); Glomerular Filtration Rate 76.5 mL/min (90-130); Glucose 134 mg/dL (65-115); NT Pro B Type Natriuretic Pept 436 pg/mL (0-125); Osmolality Calculated 284 mOsm/kg (285-295); Sodium 135 mmol/L (136-145); Total Bilirubin 0.2 mg/dL (0.15-1.2); Total Protein 6.8 g/dL (6.6-8.7)
[2021-07-09 00:33] LABS: Anion Gap 16.7 (5-19); Potassium 3.7 mmol/L (3.5-5.1)
--- NOTE | 2021-07-09 00:35 | CTR_ITS ---
PROCEDURE INFORMATION: Exam: CTA Chest With Contrast Exam date and time: 07/09/2021 12:35 AM Age: 60 years old Clinical indication: Shortness of breath; Additional info: SOB TECHNIQUE: Imaging protocol: Computed tomographic angiography of the chest with contrast. 3D rendering (Not supervised by radiologist): MIP and/or 3D reconstructed images were created by the technologist. Radiation optimization: All CT scans at this facility use at least one of these dose optimization techniques: automated exposure control; mA and/or kV adjustment per patient size (includes targeted exams where dose is matched to clinical indication); or iterative reconstruction. Contrast material: OMNI 350; Contrast volume: 73 ml; Contrast route: INTRAVENOUS (IV); COMPARISON: CR XR chest 1V portable [id number] 07/08/2021 11:51 PM RADIATION DOSE METRICS: Total DLP (mGy-cm): 576.88 FINDINGS: Pulmonary arteries: Normal. No pulmonary emboli. Aorta: Unremarkable. No aortic aneurysm. No aortic dissection. Lungs: 6 mm noncalcified anterior left lower lobe pulmonary nodule on axial image 27. No airspace consolidation. Negative for endobronchial obstruction. No peripheral honeycombing. No bronchiectasis. Small ossifications in the peripheral right lower lobe bronchi. Pleural spaces: Unremarkable. No pneumothorax. No pleural effusion. Heart: Unremarkable. No cardiomegaly. No pericardial effusion. Lymph nodes: Unremarkable. No enlarged lymph nodes. Bones/joints: Unremarkable. No acute fracture. Soft tissues: Unremarkable. CT/CT angio chest PE protcl [id number] IMPRESSION: 1. Negative for pulmonary embolism. 2. No focal pneumonia. 3. Incidental left lower lobe pulmonary nodule. 4. For patients at low risk (minimal or absent history of smoking and of other known risk factors), recommend CT Chest at 6-12 months, then consider CT Chest at 18-24 months. For patients at high risk (history of smoking or of other known risk factors), recommend CT Chest at 6-12 months, then CT Chest at 18-24 months. (Reference: Jana) REFERENCES: Jana Torres et al. Guidelines for Management of Incidental Pulmonary Nodules Detected on CT Images: From the Fleischner Society 2017. Radiology. 2017;284(1):228-243.
[2021-07-09] MEDS: iohexol 350 mg/mL 100 mL Btl IV (00:56)
[2021-07-09] MEDS: albuterol 8 gm MDI 2 PUFF INHALATION (01:29)
== END 2021-07-09 02:02 | disposition home or self-care (01) ==
PROVIDERS: Emergency Provider Emergency Medicine; PCP Family Medicine Adult Medicine
DX: J45.901 Unspecified asthma with (acute) exacerbation (principal); J44.9 Chronic obstructive pulmonary disease, unspecified; I10 Essential (primary) hypertension; Z20.822 Contact with and (suspected) exposure to COVID-19
CPT/HCPCS: 71045; 71275; 80053; 83880; 85025; 85610; 87426; 94640; 99283; J3535; J7611; Q9967

== ENCOUNTER → 2021-07-15 07:27 | Outpatient (BNVA) | payer MEDICAID, SELFPAY | PROVIDERS: PCP Family Medicine Adult Medicine; Visit Provider Nurse Practitioner Psychiatric/Mental Health | DX: F43.10 Post-traumatic stress disorder, unspecified (principal); F33.1 Major depressive disorder, recurrent, moderate; F41.9 Anxiety disorder, unspecified; Z79.899 Other long term (current) drug therapy | CPT/HCPCS: 99213 ==

== ENCOUNTER → 2021-09-02 10:06 | Outpatient (BNVA) | payer MEDICAID, SELFPAY | PROVIDERS: PCP Family Medicine Adult Medicine; Visit Provider Family Medicine Adult Medicine | DX: R63.4 Abnormal weight loss (principal); R94.4 Abnormal results of kidney function studies; I10 Essential (primary) hypertension | CPT/HCPCS: 80053; 83036; 84443; 85025 ==

== ENCOUNTER 2022-01-25 19:20 | Emergency (ER) | payer MEDICAID, SELFPAY ==
[2022-01-25 19:24] VITALS: BP 167/91; PULSE 69; RESP 15; TEMP 36.3; O2SAT 96; BMI 33.5
[2022-01-25] MEDS: albuterol 8 gm MDI 2 PUFF INHALATION (20:51)
[2022-01-25] MEDS: quetiapine 300 mg Tablet 600 MG PO (21:17)
--- NOTE | 2022-01-25 21:44 | W.ED.GENADLT ---
HPI - General Adult General: Chief complaint: General Medical Stated complaint: Insomnia Time Seen by Provider: 01/25/22 20:12 History of Present Illness: 61-year-old male presenting with insomnia. He takes Seroquel 600 mg at bedtime and has done so for years. He is evidently out of his medication. He also has asthma, and has started to wheeze. He states that he uses an inhaler for this, and he did not bring his with him. No other complaints. Onset (ago): hour(s) Associated symptoms: Reports cough (chronic) and dyspnea; Deny chest pain, fevers/chills, headache(s) or vomiting Review of Systems Const: Denies: fever(s) Card: Denies: chest pain Resp: Reports: dyspnea GI: Denies: vomiting Neuro: Denies: headache(s) PFSH ED PFSH: Medical History Acute bronchitis Acute disruption of syndesmosis of ankle joint Asthma CKD (chronic kidney disease), stage II Colon cancer screening COPD (chronic obstructive pulmonary disease) case management patient Denies ever smoking Hypertension Left hand pain Prediabetes Psychiatric care PTSD (post-traumatic stress disorder) Recurrent moderate major depressive disorder with anxiety Weight loss Social History Smoking and tobacco status: never smoked Alcohol intake: former History of recent travel: No Physical Exam HENMT: COMMON NORMALS: normocephalic and atraumatic HEAD & SCALP: normocephalic and atraumatic Eye: COMMON NORMALS: Equal, round and reactive pupils present and EOMs intact bilaterally PUPIL: Yes Equal, round and reactive pupils present Chest: CHEST: Yes Symmetrical chest wall rise Resp: COMMON NORMALS: normal respiratory effort and No use of accessory muscles AUSCULTATION: wheezes Cardio: COMMON NORMALS: regular rate and regular rhythm RATE: regular rate RHYTHM: regular rhythm GI: COMMON NORMALS: Normal to inspection, nondistended, normoactive bowel sounds present Extremity: COMMON NORMALS: no pedal edema Neuro: ANJUM COMA SCALE: document GCS findings [place] coma scale eye opening: Spontaneous [place] coma scale verbal response: Orientated Anjum coma scale motor response: Obey commands Anjum coma scale total score: 15 Course Vital Signs: Vital signs: Vital Signs Temperature 97.4 F L 08/21/22 19:24 Pulse Rate 69 01/25/22 19:24 Respiratory Rate 15 01/25/22 19:24 Blood Pressure 167/91 01/25/22 19:24 Pulse Oximetry 96 01/25/22 19:24 Oxygen Delivery Me thod 01/25/22 19:24 MDM - General Adult Medical Decision Making Patient given inhaler here with improvement in his wheezing. Medication was refilled. Home with outpatient follow-up. Discharge Plan Discharge Patient Disposition: Home Clinical Impression: Asthma, Insomnia Condition: Stable Prescriptions: Continued quetiapine 200 mg tablet 600 mg PO BEDTIME Qty: 90 0RF Rx Instructions: take 3 tablets daily at bedtime No Action losartan 100 mg tablet 100 mg PO QAM 90 Days Qty: 90 1RF fluoxetine 40 mg capsule 80 mg PO QAM Qty: 60 2RF Rx Instructions: Take two capsules by mouth every morning fluticasone propion-salmeterol [Advair Diskus] 250-50 mcg/dose blister with device 1 inh inhalation BID Qty: 60 5RF montelukast [Singulair] 10 mg tablet 10 mg PO DAILY Qty: 90 2RF alprazolam 1 mg tablet 1 mg PO BID PRN (Reason: anxiety) Qty: 60 0RF Rx Instructions: Take one tablet once or twice a day, if needed for anxiety albuterol sulfate 90 mcg/actuation HFA aerosol inhaler 2 inh INHALATION Q6H PRN (Reason: shortness of breath or wheezing) Qty: 8 0RF albuterol sulfate [Ventolin HFA] 90 mcg/actuation HFA aerosol inhaler See Rx Instructions .ROUTE .COMPLEX Qty: 18 5RF Dose Instruction: INHALE 2 PUFFS EVERY SIX HOURS NEEDED FOR SHORTNESS OF BREATH OR WHEEZING Rx Instructions: INHALE 2 PUFFS EVERY SIX HOURS NEEDED FOR SHORTNESS OF BREATH OR WHEEZING Discharge Orders: Discharge ED (Routine); Ordered 01/25/22 Ordered By: Kyle Martinez Referrals: Grayson Canchola MD [Primary Care Provider] - 1-3 days Patient Instructions: Insomnia (ED) Coding Level of Care Code ED Performance Specialist for Keyon Johnson
== END 2022-01-25 21:15 | disposition home or self-care (01) ==
PROVIDERS: Emergency Provider Emergency Medicine; PCP Family Medicine Adult Medicine
DX: G47.00 Insomnia, unspecified (principal); J45.909 Unspecified asthma, uncomplicated; I12.9 Hypertensive chronic kidney disease with stage 1 through stage 4 chronic kidney disease, or unspecified chronic kidney disease; N18.2 Chronic kidney disease, stage 2 (mild); J44.9 Chronic obstructive pulmonary disease, unspecified
CPT/HCPCS: 99283; J3535

== ENCOUNTER → 2022-01-26 10:50 | Outpatient (BNVA) | payer MEDICAID, SELFPAY | PROVIDERS: PCP Family Medicine Adult Medicine; Visit Provider Nurse Practitioner Psychiatric/Mental Health | DX: Z03.89 Encounter for observation for other suspected diseases and conditions ruled out (principal); Z79.899 Other long term (current) drug therapy | CPT/HCPCS: 80306 ==

== ENCOUNTER → 2022-01-27 08:08 | Outpatient (BNVA) | payer MEDICAID, SELFPAY | PROVIDERS: PCP Family Medicine Adult Medicine; Visit Provider Nurse Practitioner Psychiatric/Mental Health | DX: Z79.899 Other long term (current) drug therapy (principal) | CPT/HCPCS: 80053; 80061; 83036 ==

== ENCOUNTER → 2022-02-02 08:44 | Outpatient (BNVA) | payer MEDICAID, SELFPAY | PROVIDERS: PCP Family Medicine Adult Medicine; Visit Provider Nurse Practitioner Psychiatric/Mental Health | DX: Z03.89 Encounter for observation for other suspected diseases and conditions ruled out (principal); Z79.899 Other long term (current) drug therapy | CPT/HCPCS: 80306 ==

== ENCOUNTER 2022-02-03 08:06 | Emergency (ER) | payer MEDICAID, SELFPAY ==
[2022-02-03 08:10] VITALS: BP 164/97; PULSE 82; RESP 20; TEMP 36.6; O2SAT 93; BMI 33.5
--- NOTE | 2022-02-03 08:16 | XR_ITS ---
WS: [id number] Exam: XR chest 1V portable [id number] Date/Time of Exam: 02/03/2022 8:26 AM Reason For Exam: dyspnea/cough Comparison 07/08/2021. Findings: The lungs are clear and fully expanded. Costophrenic angles are sharp. No infiltrates. Bronchovascula r relief appears normal. Cardiac silhouette is unremarkable. Bony elements are intact. XR/XR chest 1V portable [id number] IMPRESSION: Unremarkable chest radiograph.
[2022-02-03 08:30] VITALS: PULSE 60; RESP 18; O2SAT 91
[2022-02-03] MEDS: ipratropium-albuterol 3 mL Neb INHALATION (08:35)
[2022-02-03 08:37] VITALS: PULSE 61
--- NOTE | 2022-02-03 08:39 | ED_ITS ---
HPI - SOB/Dyspnea General: Chief Complaint: Shortness of Breath/Dyspnea Stated Complaint: SOB Time Seen by Provider: 02/03/22 08:15 Source: patient Mode of arrival: ambulatory History of Present Illness: HPI Narrative: 61-year-old male presents emergency room complains of shortness of breath. He has a history of COPD previously was on Advair but ran out. He has been using an albuterol inhaler regularly at home somewhat so he is use an entire inhaler within 1 week. He has had a increasingly productive cough of green-brown sputum once this is changed from his baseline. He denies any fever sweats chills has not had any diarrhea no anosmia. Patient denies smoking. MD elicited complaint: shortness of breath and cough Pertinent past history: COPD Onset (ago): week(s) (1) Timing: constant and progressively worsening Severity: moderate Exacerbating factors: coughing Relieving factors: bronchodilators Known history of: COPD Associated symptoms: Reports chest congestion and cough; Deny abdominal pain, chest pain, diaphoresis, dizziness, extremity pain, fever(s), hemoptysis, lightheadedness, myalgias, nausea, orthopnea, palpitations, paresthesias, polydipsia, polyuria, rash, sense of impending doom, syncope or vomiting Treatment prior to arrival: bronchodilator Review of Systems Const: Denies: fever(s), chills, fatigue, malaise or diaphoresis ENMT: Denies: throat pain, ear or mastoid pain, nasal discharge or nasal congestion Card: Denies: chest pain, palpitations, lightheadedness, syncope or orthopnea Resp: Reports: productive cough, wheezing and chest congestion; Denies: dyspnea or hemoptysis GI: Denies: abdominal pain, nausea or vomiting : Denies: flank pain, difficulty urinating, dysuria, urinary frequency or urinary urgency Musc: Denies: extremity pain Skin/Breast: Denies: rash or pruritus Neuro: Denies: dizziness Endo: Denies: polyuria or polydipsia PFSH ED PFSH: Medical History Acute bronchitis Acute disruption of syndesmosis of ankle joint Asthma CKD (chronic kidney disease), stage II Colon cancer screening COPD (chronic obstructive pulmonary disease) case management patient Denies ever smoking Hypertension Left hand pain Prediabetes Psychiatric care PTSD (post-traumatic stress disorder) Recurrent moderate major depressive disorder with anxiety Weight loss Social History Smoking and tobacco status: never smoked Alcohol intake: former History of recent travel: No Physical Exam Const: GENERAL APPEARANCE: cooperative and comfortable ORIENTATION/CONSCIOUSNESS: Yes awake, Yes oriented to person, Yes oriented to place and Yes oriented to time HENMT: COMMON NORMALS: normocephalic, atraumatic and hearing grossly normal bilaterally HEAD & SCALP: normocephalic and atraumatic Resp: COMMON NORMALS: normal respiratory effort, No retractions and No use of accessory muscles AUSCULTATION: rhonchi and wheezes Cardio: COMMON NORMALS: regular rate, regular rhythm and No murmurs present (Cardio) RATE: regular rate RHYTHM: regular rhythm GI: COMMON NORMALS: Soft to palpation and No hepatosplenomegaly present AUSCULTATION: Yes normoactive bowel sounds PALPATION: Yes Soft to palpation, No Tenderness to palpation present (GI), No Guarding due to palpation present (GI) and Yes No hepatosplenomegaly present Extremity: COMMON NORMALS: normal to inspection, capillary refill normal, no clubbing, cyanosis or edema, no calf tenderness and no pedal edema Neuro: SENSORIUM/ORIENTATION: Yes oriented to person, Yes oriented to place and Yes oriented to time Skin: COMMON NORMALS: no rashes or lesions noted GENERAL SKIN EXAM: no rashes or lesions noted Course Vital Signs: Vital signs: Vital Signs Temperature 97.9 F 02/03/22 08:10 Pulse Rate 83 02/03/22 09:08 Respiratory Rate 18 02/03/22 09:08 Blood Pressure 164/97 02/03/22 08:10 Pulse Oximetry 95 02/03/22 09:08 Oxygen Delivery Me thod 02/03/22 08:30 MDM - SOB/Dyspnea Medical Decision Making Acute exacerbation of COPD discharge patient home on albuterol doxycycline and a steroid taper. Advised start steroid taper tomorrow. He should follow-up with his primary care doctor within the week. Return if he has worsening problems. Medical Records I reviewed the patient's medical records. Lab Data I reviewed the patient's lab results. Labs/Radiology: Radiology Impressions Chest X-Ray 02/03/22 08:16 IMPRESSION: Unremarkable chest radiograph. Discharge Plan Discharge Patient Disposition: Home Clinical Impression: Acute exacerbation of chronic obstructive airways disease Condition: Stable Prescriptions: New doxycycline hyclate 100 mg capsule 100 mg PO BID 10 Days Qty: 20 0RF Medrol (Hardy) 4 mg tablets,dose pack See Rx Instructions .ROUTE .COMPLEX Qty: 21 0RF Rx Instructions: orally per package directions Advair Diskus 250-50 mcg/dose blister with device 1 inh inhalation BID Qty: 60 0RF No Action losartan 100 mg tablet 100 mg PO QAM 90 Days Qty: 90 1RF fluoxetine 40 mg capsule 80 mg PO QAM Qty: 60 0RF alprazolam 1 mg tablet 1 mg PO BID PRN (Reason: anxiety) Qty: 60 0RF Rx Instructions: Take one tablet, once or twice daily, if needed for anxiety Ventolin HFA 90 mcg/actuation HFA aerosol inhaler 2 puff inhalation Q6H PRN (Reason: Shortness Of Breath) Qty: 18 3RF quetiapine 200 mg tablet 600 mg PO BEDTIME Qty: 90 0RF NyQuil 7.5-60-30-1,000 mg/30 mL Liquid 30 ml PO BEDTIME Discharge Orders: Discharge ED (Routine); Ordered 02/03/22 Ordered By: Zana Matthew Referrals: Grayson Canchola MD [Primary Care Provider] - Discharge Diet: Usual diet Discharge Activity: Increase activity as tolerated Patient Instructions: Opioid Safety Activity Restrictions/Additional Instructions: Follow-up with your doctor within 1 week Coding Level of Care Code ED Janitor Custodian for Chg Fwd Exam Detailed
[2022-02-03 09:08] VITALS: PULSE 83; RESP 18; O2SAT 95
== END 2022-02-03 09:10 | disposition home or self-care (01) ==
PROVIDERS: Emergency Provider Family Medicine; PCP Family Medicine Adult Medicine
DX: J44.1 Chronic obstructive pulmonary disease with (acute) exacerbation (principal); I12.9 Hypertensive chronic kidney disease with stage 1 through stage 4 chronic kidney disease, or unspecified chronic kidney disease; N18.2 Chronic kidney disease, stage 2 (mild)
CPT/HCPCS: 71045; 94640; 96374; 99284; J2930

== ENCOUNTER → 2022-11-26 16:38 | Outpatient (BNVA) | payer MEDICAID, SELFPAY | PROVIDERS: PCP Family Medicine Adult Medicine; Visit Provider Nurse Practitioner Psychiatric/Mental Health | DX: Z79.899 Other long term (current) drug therapy (principal) | CPT/HCPCS: 80306 ==

== ENCOUNTER → 2022-11-27 10:16 | Outpatient (BNVA) | payer MEDICAID, SELFPAY | PROVIDERS: PCP Family Medicine Adult Medicine; Visit Provider Nurse Practitioner Psychiatric/Mental Health | DX: F43.10 Post-traumatic stress disorder, unspecified (principal); Z79.899 Other long term (current) drug therapy | CPT/HCPCS: 80324; 80359 ==